=== PATIENT | female | born 1990 | race Caucasian/White ===

== ENCOUNTER 2023-04-21 09:52 | Outpatient (OUT) | payer OTHER, SELFPAY ==
--- NOTE | 2023-04-21 10:00 | XR_ITS ---
The [address] [address] Patient Name: PAIGE FUNG MRN: [id number] date: 1990 Sex: F Assigned Patient Location: [facility] Current Patient Location: [facility] Accession/Order Number: [id number] Exam Date: 04/21/2023 10:35 Report Date: 04/21/2023 11:15 At the request of: ZORAIDA LIPSCOMB Procedure: XR chest 2V EXAM: Chest x-ray HISTORY: . Preop exam . COMPARISON: None. TECHNIQUE: Frontal and lateral chest FINDINGS: Heart is upper limits of normal in size left ventricular contour. Vascularity is unremarkable. Lungs are free of focal infiltrates. No bony abnormality is appreciated. XR/XR chest 2V IMPRESSION: 1. Borderline cardiac enlargement. 2. No acute heart or lung disease identified. Electronically authenticated by: KIKO ERYNA Date: 04/21/2023 11:15
--- NOTE | 2023-04-21 10:37 | PM.PRESUREVA ---
History of Present Illness History of Present Illness Chief complaint: right shoulder adhesive capulitis Narrative: Patient presents for preadmission testing. The patient reports a right shoulder injury at work over one year ago. She states she's been through physical therapy and used anti-inflammatory medications as well as steroid injections with no improvement of her pain. She denies numbness, tingling, weakness, or any other complaints. She does occasionally take Tylenol or ibuprofen to help with her discomfort. Review of Systems ROS Narrative REVIEW OF SYSTEMS: Negative except as stated in HPI, ten or more systems reviewed. Constitutional: No fever , chills, weakness ENT: No sore throat or epistaxis Cardiovascular: No edema, chest pain, palpitations, or activity intolerance Respiratory: No shortness of breath, cough, or wheezing Gastrointestinal: No abdominal pain, constipation, diarrhea, or vomiting Genitourinary: No dysuria or hematuria Neurological: No numbness, tingling, weakness, or headache Psychiatric: No mood changes PFSH PFS Medical History (Updated 04/21/23 @ 10:17 by Itzel Alvarado NP) Depression ?F32.A - Depression, unspecified (ICD-10) Anxiety ?F41.9 - Anxiety disorder, unspecified (ICD-10) Sleep apnea ?G47.30 - Sleep apnea, unspecified (ICD-10) Migraine ?G43.909 - Migraine, unspecified, not intractable, without status migrainosus (ICD-10) GERD (gastroesophageal reflux disease) ?K21.9 - Gastro-esophageal reflux disease without esophagitis (ICD-10) IBS (irritable bowel syndrome) ?K58.9 - Irritable bowel syndrome without diarrhea (ICD-10) Postoperative nausea and vomiting ?R11.2 - Nausea with vomiting, unspecified (ICD-10) ?Z98.890 - Other specified postprocedural states (ICD-10) Adhesive capsulitis of right shoulder ?M75.01 - Adhesive capsulitis of right shoulder (ICD-10) Surgical History (Updated 04/21/23 @ 10:17 by Itzel Alvarado NP) H/O lumpectomy ?Z98.890 - Other specified postprocedural states (ICD-10) History of cholecystectomy ?Z90.49 - Acquired absence of other specified parts of digestive tract (ICD-10) Family History (Updated 04/21/23 @ 10:17 by Itzel Alvarado NP) Other Family history of diabetes mellitus Family history of hypertension Social History (Updated 04/21/23 @ 10:13 by Itzel Alvarado NP) Within the past year, how often did you have a drink containing alcohol: monthly or less Smoking status: Current every day smoker Do you use any of these nicotine containing products: e-cigarettes and vaping products Previous occupational history: [employer] Highest level of school completed/degree received: high school graduate Meds Home Medications and Allergies Home Medications Medication Instructions Recorded Confirmed Type levonorgestrel 21 mcg/24 hours (8 intrauterine 04/21/23 History yrs) 52 mg intrauterine device (Mirena) Allergies Allergy/AdvReac Type Severity Reaction Status Date / Time No Known Drug Allergies Allergy Verified 04/21/23 10:13 Exam Narrative Exam Narrative: Constitutional: Awake, alert, comfortable, well-appearing, nontoxic, interactive, vital signs as charted Head: Normocephalic, atraumatic Neck: Supple, normal appearance, normal range of motion, no meningeal signs, no lymphadenopathy Respiratory: No respiratory distress, breath sounds clear Cardiovascular: Regular rate and rhythm, strong and regular heart tones Skin: No rashes or induration, no lesions, only visible skin inspected Neuro: No neurological deficits, normal sensation Psychiatric: Oriented ?3, normal affect Assessment and Plan Assessment and Plan (1) Adhesive capsulitis of right shoulder: Plan Right shoulder manipulation under anesthesia scheduled with Dr. Callaway 05/04/2023.
== END 2023-04-21 09:53 | disposition home or self-care (01) ==
LOC: PST 09:55
PROVIDERS: Visit Provider Orthopaedic Surgery
DX: Z01.810 Encounter for preprocedural cardiovascular examination (principal); Z01.818 Encounter for other preprocedural examination; M75.01 Adhesive capsulitis of right shoulder
CPT/HCPCS: 71046; G0463

== ENCOUNTER 2023-05-04 11:56 | Day surgery (SDC) | payer OTHER, SELFPAY ==
[2023-04-21 10:31] VITALS: BP 125/81; PULSE 80; RESP 20; TEMP 36.2; O2SAT 99; BMI 56.2
[2023-05-04] VITALS (10 sets, daily range): BP systolic 112–130; BP diastolic 70–82; PULSE 72–78; RESP 13–28; TEMP 36.4; O2SAT 91–98; BMI 54.7
--- OUTSIDE RECORDS SUMMARY | 2023-05-04 11:59 | XMS_ITS | CCD ---
Author Name Unknown Address [address] [place] [address] Organization [facility] Care Team Providers Care Theatre Instructor Name Role Phone BRUNO VALDEZ Admitting Unavailable BRUNO VALDEZ Attending Unavailable BRUNO VALDEZ Consulting Unavailable House DO, Sr Jesus Butcher Primary Care Provider House Sr., DOJesus Primary Care Provider HOUSE SR, JESUS P Primary Care Unavailable LIPSCOMB, ADRIAN Hanson Referring Unavailable HOUSE SR, JESUS P Primary Care Unavailable LIPSCOMB, ADRIAN Hanson Referring Unavailable HOUSE SR, JESUS P Primary Care Unavailable HOUSE SR, JESUS P Primary Care Unavailable LIPSCOMB, ADRIAN aHnson Referring Unavailable HOUSE SR, JESUS P Primary Care Unavailable LIPSCOMB, ADRIAN Hanson Referring Unavailable HOUSE SR, JESUS P Primary Care Unavailable LIPSCOMB, ADRIAN Hanson Referring Unavailable HOUSE SR, JESUS P Primary Care Unavailable LIPSCOMB, ADRIAN Hanson Referring Unavailable KRISTOFER, YOBANI Y Referring Unavailable HOUSE SR, JESUS P Primary Care Unavailable HOUSE SR, JESUS P Primary Care Unavailable LIPSCOMB, ADRIAN Hanson Referring Unavailable HOUSE SR, JESUS P Primary Care Unavailable LIPSCOMB, ADRIAN Hanson Referring Unavailable HOUSE SR, JESUS P Primary Care Unavailable LIPSCOMB, ADRIAN Hanson Referring Unavailable HOUSE SR, JESUS P Primary Care Unavailable LIPSCOMB, ADRIAN Hanson Referring Unavailable HOUSE SR, JESUS P Primary Care Unavailable LIPSCOMB, ADRIAN Hanson Referring Unavailable LIPSCOMB, ADRIAN Hanson Referring Unavailable HOUSE SR, JESUS P Primary Care Unavailable LIPSCOMB, ADRIAN Hanson Referring Unavailable HOUSE SR, JESUS P Primary Care Unavailable HOUSE SR, JESUS P Primary Care Unavailable LIPSCOMB, ADRIAN Hanson Referring Unavailable HOUSE SR, JESUS P Primary Care Unavailable LIPSCOMB, ADRIAN Hanson Referring Unavailable HOUSE SR, JESUS P Primary Care Unavailable LIPSCOMB, ADRIAN Hanson Referring Unavailable HOUSE SR, JESUS P Primary Care Unavailable Medications Current Medications Medication Drug Class(es) Dates Sig (Normalized) Sig (Original) ondansetron 4 mg oral tablet (16 sources) Serotonin-3 Receptor Antagonist Start: 05-05-2017 take 1 tablet by mouth every four hours as needed for nausea ondansetron (ZOFRAN) 4 MG tablet Take 1 tablet by mouth every 4 hours as needed for Nausea or Vomiting 15 tablet 0 05/05/2017 Active Problems Active Problems Problem Classification Problem Date Documented Date Episodic/Chronic Immunizations and screening for infectious disease (1 source) Encounter for screening for human papillomavirus (HPV); Translations: [ENC SCREENING HUMAN PAPILLOMAVIRUS] Onset: 11-12-2018 Episodic Other female genital disorders (4 sources) Other specified noninflammatory disorders of vagina; Translations: [OTH SPEC NONINFLAMMATORY D/O VAGINA] Onset: 11-04-2018 Episodic Other non-traumatic joint disorders (1 source) Shoulder pain; Translations: [Pain in right shoulder] Episodic Other screening for suspected conditions (not mental disorders or infectious disease) (1 source) Encounter for screening for malignant neoplasm of cervix; Translations: [ENC SCREENING MALIG NEOPLASM CERV] Onset: 11-12-2018 Episodic Sprains and strains (1 source) Shoulder strain; Translations: [Strain of unspecified muscle, fascia and tendon at shoulder and upper arm level, right arm, initial encounter] Episodic Unclassified (2 sources) Right shoulder; Translations: [Right shoulder] Onset: 07-07-2022 Unclassified (2 sources) Shoulder Injury; Translations: [Shoulder Injury] Onset: 01-06-2022 Past or Other Problems Problem Classification Problem Date Documented Date Episodic/Chronic Noninfectious gastroenteritis (16 sources) Colitis; Translations: [Noninfective gastroenteritis and colitis, unspecified] Onset: 05-05-2017 05-05-2017 Episodic Other non-traumatic joint disorders (1 source) Pain in right shoulder; Translations: [Pain in right shoulder] Onset: 01-29-2022 Episodic Results Test Name Value Interpretation Reference Range Facility MRI SHOULDER RIGHT WO JIM Parris 01-30-2022 MRI SHOULDER RIGHT WO CONTRAST EXAMINATION: MRI OF THE RIGHT SHOULDER WITHOUT CONTRAST 01/29/2022 3:07 pm TECHNIQUE: Multiplanar multisequence MRI of the right shoulder was performed without the administration of intravenous contrast. COMPARISON: Right shoulder plain radiographs from 01/06/2022 HISTORY: ORDERING SYSTEM PROVIDED HISTORY: Right shoulder pain, unspecified chronicity TECHNOLOGIST PROVIDED HISTORY: What is the sedation requirement?->None 31-year-old female with right shoulder pain FINDINGS: ROTATOR CUFF: Trace fluid in the subacromial-subdeltoi d bursa. Mild supraspinatus and infraspinatus tendinosis. Subscapularis and teres minor muscle/tendon appear grossly intact without evidence of tearing. No significant atrophy or fatty degeneration of the visualized rotator cuff musculature. No partial or full thickness rotator cuff tear. BICEPS TENDON: Long head of biceps tendon properly located in the bicipital groove and seen extending to the biceps labral anchor. LABRUM: No discrete labral tear or paralabral cyst formation. GLENOHUMERAL JOINT: No sizable glenohumeral joint effusion. Glenohumeral articular cartilage is preserved. Inferior glenohumeral ligament appears intact. AC JOINT AND ACROMIOCLAVICULAR ARCH: Right AC joint grossly unremarkable. Type 2 acromion. BONE MARROW: Subcortical cystic changes at the posterolateral humeral head. Bone marrow signal intensity within the visualized osseous structures otherwise within normal limits. No acute fracture or dislocation involving the osseous components of the shoulder. OUTLET SPACES: Suprascapular notch and quadrilateral space grossly unremarkable in appearance. No right axillary lymphadenopathy. IMPRESSION: 1. Mild supraspinatus and infraspinatus tendinosis. No partial or full-thickness rotator cuff tear. 2. No discrete labral tear or paralabral cyst formation. RECOMMENDATIONS: Unavailable Interpreted by: Frank Brito MD Signed by: Frank Brito MD 01/30/22 Final result Normal [facility] 1. Mild supraspinatu s and infraspinatus tendinosis. No partial or full-thickness rotator cuff tear. 2. No discrete labral tear or paralabral cyst formation. RECOMMENDATIONS: Unavailable [facility] EXAMINATION: MRI OF THE RIGHT SHOULDER WITHOUT CONTRAST 01/29/2022 3:07 pm TECHNIQUE: Multiplanar multisequence MRI of the right shoulder was performed without the administration of intravenous contrast. COMPARISON: Right shoulder plain radiographs from 01/06/2022 HISTORY: ORDERING SYSTEM PROVIDED HISTORY: Right shoulder pain, unspecified chronicity TECHNOLOGIST PROVIDED HISTORY: What is the sedation requirement?->None 31-year-old female with right shoulder pain FINDINGS: ROTATOR CUFF: Trace fluid in the subacromial-subdeltoi d bursa. Mild supraspinatus and infraspinatus tendinosis. Subscapularis and teres minor muscle/tendon appear grossly intact without evidence of tearing. No significant atrophy or fatty degeneration of the visualized rotator cuff musculature. No partial or full thickness rotator cuff tear. BICEPS TENDON: Long head of biceps tendon properly located in the bicipital groove and seen extending to the biceps labral anchor. LABRUM: No discrete labral tear or paralabral cyst formation. GLENOHUMERAL JOINT: No sizable glenohumeral joint effusion. Glenohumeral articular cartilage is preserved. Inferior glenohumeral ligament appears intact. AC JOINT AND ACROMIOCLAVICULAR ARCH: Right AC joint grossly unremarkable. Type 2 acromion. BONE MARROW: Subcortical cystic changes at the posterolateral humeral head. Bone marrow signal intensity within the visualized osseous structures otherwise within normal limits. No acute fracture or dislocation involving the osseous components of the shoulder. OUTLET SPACES: Suprascapular notch and quadrilateral space grossly unremarkable in appearance. No right axillary lymphadenopathy. [facility] Frank Brito MD - 01/30/2022 EXAMINATION: MRI OF THE RIGHT SHOULDER WITHOUT CONTRAST 01/29/2022 3:07 pm TECHNIQUE: Multiplanar multisequence MRI of the right shoulder was performed without the administration of intravenous contrast. COMPARISON: Right shoulder plain radiographs from 01/06/2022 HISTORY: ORDERING SYSTEM PROVIDED HISTORY: Right shoulder pain, unspecified chronicity TECHNOLOGIST PROVIDED HISTORY: What is the sedation requirement?->None 31-year-old female with right shoulder pain FINDINGS: ROTATOR CUFF: Trace fluid in the subacromial-subdeltoi d bursa. Mild supraspinatus and infraspinatus tendinosis. Subscapularis and teres minor muscle/tendon appear grossly intact without evidence of tearing. No significant atrophy or fatty degeneration of the visualized rotator cuff musculature. No partial or full thickness rotator cuff tear. BICEPS TENDON: Long head of biceps tendon properly located in the bicipital groove and seen extending to the biceps labral anchor. LABRUM: No discrete labral tear or paralabral cyst formation. GLENOHUMERAL JOINT: No sizable glenohumeral joint effusion. Glenohumeral articular cartilage is preserved. Inferior glenohumeral ligament appears intact. AC JOINT AND ACROMIOCLAVICULAR ARCH: Right AC joint grossly unremarkable. Type 2 acromion. BONE MARROW: Subcortical cystic changes at the posterolateral humeral head. Bone marrow signal intensity within the visualized osseous structures otherwise within normal limits. No acute fracture or dislocation involving the osseous components of the shoulder. OUTLET SPACES: Suprascapular notch and quadrilateral space grossly unremarkable in appearance. No right axillary lymphadenopathy. IMPRESSION: 1. Mild supraspinatus and infraspinatus tendinosis. No partial or full-thickness rotator cuff tear. 2. No discrete labral tear or paralabral cyst formation. RECOMMENDATIONS: Unavailable [employer] Phone: MRI SHOULDER RIGHT WO CONTRA STOrdered By: Frank Brito on 01-30-2022 [employer] Phone: MRI SHOULDER RIGHT WO CONTRA STon 01-29-2022 Radiology Study observation (narrative) [employer] Phone: XR SHOULDER RIGHT (MIN 2 VIE WS)on 01-06-2022 XR SHOULDER RIGHT (MIN 2 VIEWS) EXAMINATION: THREE XRAY VIEWS OF THE RIGHT SHOULDER 01/06/2022 4:36 pm COMPARISON: None. HISTORY: ORDERING SYSTEM PROVIDED HISTORY: pain injury TECHNOLOGIST PROVIDED HISTORY: pain injury FINDINGS: No radiographic evidence of acute fracture or dislocation is seen. No periarticular calcification changes are seen. No radiopaque foreign body is seen. IMPRESSION: No radiographic evidence of acute osseous abnormality of the right shoulder seen. Interpreted by: Yobani Johnson MD Signed by: Yobani Johnson MD 01/06/22 Final result Normal [facility] No radiographic evidence of acute osseous abnormality of the right shoulder seen. [facility] EXAMINATION: THREE XRAY VIEWS OF THE RIGHT SHOULDER 01/06/2022 4:36 pm COMPARISON: None. HISTORY: ORDERING SYSTEM PROVIDED HISTORY: pain injury TECHNOLOGIST PROVIDED HISTORY: pain injury FINDINGS: No radiographic evidence of acute fracture or dislocation is seen. No periarticular calcification changes are seen. No radiopaque foreign body is seen. [facility] Yobani Johnson MD - 01/06/2022 EXAMINATION: THREE XRAY VIEWS OF THE RIGHT SHOULDER 01/06/2022 4:36 pm COMPARISON: None. HISTORY: ORDERING SYSTEM PROVIDED HISTORY: pain injury TECHNOLOGIST PROVIDED HISTORY: pain injury FINDINGS: No radiographic evidence of acute fracture or dislocation is seen. No periarticular calcification changes are seen. No radiopaque foreign body is seen. IMPRESSION: No radiographic evidence of acute osseous abnormality of the right shoulder seen. [employer] Phone: Radiology Study observation (narrative) [employer] Phone: XR SHOULDER RIGHT (MIN 2 VIE WS)Ordered By: oYbani Johnson on 01-06-2022 [employer] Phone: PAP ACOG PANEL 2: 21 to 29on 11-09-2018 Age Gdln ACOG Testing 21-29 Normal [facility] Comment on above: Performed By: #### [id number] #### [facility] [address] [place] [address] Jovanna Pelletier DIAGNOSIS: Comment Normal [facility] Comment on above: Result Comment: NEGA TIVE FOR INTRAEPITHELIAL LESION OR MALIGNANCY. THIS SPECIMEN WAS RESCREENED PART OF OUR WELT TRIMMING MACHINE OPERATOR PROGRAM. Performed By: #### [id number] #### [facility] [address] [place] [address] Jovanna Pelletier Methodology: Comment Normal [facility] Comment on above: Result Comment: This liquid based SurePath(R) pap test was screened with the assistance of an image guided system. Performed By: #### [id number] #### [facility] [address] [place] [address] Jovanna Pelletier Note: Comment Normal [facility] Comment on above: Result Comment: The Pap smear is a screening test designed to aid in the detection of premalignant and malignant conditions of the uterine cervix. It is not a diagnostic procedure and should not be used as the sole means of detecting cervical cancer. Both false-positive and false-negative reports do occur. . Performed By: #### [id number] #### [facility] [address] [address] Jovanna Liyah Performed by: Comment Normal [facility] Comment on above: Result Comment: Yanet Person, Pension Adviser (ASCP) Performed By: #### [id number] #### [facility] [address] [address] Jovanna Liyah QC reviewed by: Comment Normal [facility] Comment on above: Result Comment: Christy Palomino, Pension Adviser (ASCP) Performed By: #### [id number] #### [facility] [address] [address] Jovanna Liyah Reflex Criteria: Comment Normal [facility] Comment on above: Result Comment: The HPV DNA reflex criteria were not met with this specimen result therefore, no HPV testing was performed. . Performed By: #### [id number] #### [facility] [address] [place] [address] Jovanna Liyah Specimen adequacy: Comment Normal [facility] Comment on above: Result Comment: Sati sfactory for evaluation. Areas of partially obscuring inflammatory exudate are present. Partially obscuring thick areas are present. Performed By: #### [id number] #### [facility] [address] [place] [address] Jovanna Pelletier . . Normal [facility] Comment on above: Performed By: #### [id number] #### [facility] [address] [place] [address] Jovannabhumi Pelletier CHLAMYDIA/GONOCOCCUS KORTNEY (SW AB/URINE/PAPon 11-08-2018 Chlamydia trachomatis, KORTNEY Negative Normal Negative [facility] Comment on above: Performed By: #### C T/NGNA #### [facility] [address] [place] [address] Jovannabhumi Pelletier Neisseria gonorrhoeae, KORTNEY Negative Normal Negative [facility] Comment on above: Performed By: #### C T/NGNA #### [facility] [address] [place] [address] Jovannabhumi Pelletier VAGINITIS/VAGINOSIS DNA PROB Giancarlo 11-06-2018 Alma Rosa species Negative Normal Negative [facility] Comment on above: Performed By: #### V AGINT #### [facility] [address] [place], [place] [address] Jovanna Pelletier Gardnerella vaginalis Negative Normal Negative [facility] Comment on above: Performed By: #### V AGINT #### [facility] [address] [place], [place] [address] Jovanna Pelletier Trichomonas vaginalis Negative Normal Negative [facility] Comment on above: Performed By: #### V AGINT #### [facility] [address] [place], [place] [address] Jovanna Pelletier Vital Signs Date Time Vital Sign Value Performing Clinician Faci lity 01-06-2022 16:17-0400 Body temperature 99.19 [degF] Sr House DO Work Phone: [facility] 01-06-2022 16:17-0400 Diastolic blood pressure 83 mm[Hg] Sr House DO Work Phone: [facility] 01-06-2022 16:17-0400 Heart rate 90 /min Sr House DO Work Phone: [facility] 01-06-2022 16:17-0400 Respiratory rate 16 /min Sr House DO Work Phone: [facility] 01-06-2022 16:17-0400 SaO2% (BldA) [Mass fraction] 100 % Sr House DO Work Phone: [facility] 01-06-2022 16:17-0400 Systolic blood pressure 147 mm[Hg] Sr House DO Work Phone: [facility] Encounters Encounter Date Encounter Type Care Provider Facility Start: 08-08-2022 End: 08-09-2022 ambulatory JESUS P [facility] Start: 08-06-2022 End: 08-07-2022 ambulatory JESUS P [facility] Start: 07-30-2022 End: 07-31-2022 ambulatory JESUS P [facility] Start: 07-30-2022 End: 07-30-2022 Subsequent hospital visit by physician Jazmín Feldman PTA [facility] Comment on above: Arrived Start: 07-28-2022 End: 07-29-2022 ambulatory JESUS Butcher [facility] Start: 07-28-2022 End: 07-28-2022 Subsequent hospital visit by physician [facility]io C Adams [facility] Comment on above: Arrived Start: 07-25-2022 End: 07-26-2022 ambulatory JESUS Butcher [facility] Start: 07-25-2022 End: 07-25-2022 Subsequent hospital visit by physician Julio C Adams PTA [facility] Physical Therapy Comment on above: Arrived Start: 07-23-2022 End: 07-24-2022 ambulatory JESUS Butcher [facility] Start: 07-23-2022 End: 07-23-2022 Subsequent hospital visit by physician Julio C Adams PTA [facility] Physical Therapy Comment on above: Arrived Start: 07-21-2022 End: 07-22-2022 [facility] JESUS Butcher [facility] Start: 07-21-2022 End: 07-21-2022 Subsequent hospital visit by physician Julio C Adams PTA [facility] Physical Therapy Comment on above: Arrived Start: 07-18-2022 End: 07-19-2022 [facility] JESUS Butcher [facility] Start: 07-16-2022 End: 07-17-2022 [facility] JESUS Butcher [facility] Start: 07-16-2022 End: 07-16-2022 Subsequent hospital visit by physician Julio C Adams PTA [facility] Physical Therapy Comment on above: Arrived Start: 07-14-2022 End: 07-15-2022 [facility] JESUS Butcher [facility] Start: 07-14-2022 End: 07-14-2022 Subsequent hospital visit by physician Julio C Adams PTA [facility] Physical Therapy Comment on above: Arrived Start: 07-11-2022 End: 07-12-2022 [facility] Start: 07-09-2022 End: 07-10-2022 [facility] Start: 07-09-2022 End: 07-09-2022 Subsequent hospital visit by physician Julio C Adams PTA [facility] Physical Therapy Comment on above: Arrived Start: 07-07-2022 End: 07-08-2022 ambulatory JESUS Butcher [facility] Start: 07-07-2022 End: 07-07-2022 Subsequent hospital visit by physician Julio C Adams PTA [facility] Physical Therapy Comment on above: Arrived Start: 07-04-2022 End: 07-05-2022 ambulatory JESUS Butcher [facility] Start: 07-04-2022 End: 07-04-2022 Subsequent hospital visit by physician Amaury Quiñonez PT [facility] Physical Therapy Comment on above: Arrived Start: 07-02-2022 End: 07-03-2022 ambulatory JESUS Butcher [facility] Start: 07-02-2022 End: 07-02-2022 Subsequent hospital visit by physician Julio C Adams PTA [facility] Physical Therapy Comment on above: Arrived Start: 06-30-2022 End: 06-30-2022 Subsequent hospital visit by physician Julio C Adams PTA [facility] Start: 06-24-2022 End: 06-25-2022 ambulatory JESUS Butcher [facility] Start: 06-24-2022 End: 06-24-2022 Subsequent hospital visit by physician Amaury Quiñonez PT [facility] Physical Therapy Comment on above: Arrived Start: 06-20-2022 End: 06-21-2022 [facility] JESUS Butcher [facility] Start: 06-20-2022 End: 06-20-2022 Subsequent hospital visit by physician Gianna Thompson PT [facility] Physical Therapy Comment on above: Arrived Start: 01-29-2022 End: 02-01-2022 ambulatory YOBANI DUENAS [facility] Start: 01-29-2022 End: 01-31-2022 Subsequent hospital visit by physician [facility] Comment on above: Right shoulder pain, unspecified chronicity Start: 01-06-2022 Emergency department patient visit JESUS Butcher [facility] Start: 01-06-2022 End: 01-06-2022 Emergency department patient visit [facility] DO Work Phone: [facility] ED Comment on above: Strain of right shou lder, initial encounter (Primary Dx) Start: 11-04-2018 End: 11-04-2018 Patient encounter procedure [facility] Facility:H1 Procedures Date Procedure Procedure Detail Performing Clinician Start: 01-29-2022 Mri any jt upper extremity w/o contrast matrl Yobani Duenas Work Phone: Start: 01-06-2022 Radex shoulder compl ete minimum 2 views Rainsera Marie DO Work Phone: Plan of Treatment Date Care Activity Detail Author Start: 10-21-2022 Influenza vaccination Flu vacc ine (Season Ended) [facility] Start: 08-08-2022 End: 08-08-2022 Patient encounter procedure 08/08/2022 Appointment Physical Therapy Amaury Quiñonez, MARIA ESTHER [facility] Start: 08-06-2022 End: 08-06-2022 Patient encounter procedure 08/06/2022 Appointment Physical Therapy Julio C Adams PTA [facility] Start: 08-04-2022 End: 08-04-2022 Patient encounter procedure 08/04/2022 Appointment Physical Therapy Julio C Adams PTA [facility] Start: 08-01-2022 End: 08-01-2022 Patient encounter procedure 08/01/2022 Appointment Physical Therapy Nova Meyer PT [facility] Start: 07-30-2022 End: 07-30-2022 Patient encounter procedure [facility] Start: 07-28-2022 End: 07-28-2022 Patient encounter procedure 07/28/2022 Appointment Physical Therapy [facility]io C Adams [facility] Start: 07-25-2022 End: 07-25-2022 Patient encounter procedure 07/25/2022 Appointment Physical Therapy Julio C Adams PTA [facility] Start: 07-23-2022 End: 07-23-2022 Patient encounter procedure 07/23/2022 Appointment Physical Therapy Julio C Adams [facility] Start: 07-21-2022 End: 07-21-2022 Patient encounter procedure 07/21/2022 Appointment Physical Therapy Julio C Adams PTA [facility] Start: 07-18-2022 End: 07-18-2022 Patient encounter procedure 07/18/2022 Appointment Physical Therapy Julio C Adams PTA [facility] Start: 07-16-2022 End: 07-16-2022 Patient encounter procedure 07/16/2022 Appointment Physical Therapy Julio C Adams [facility] Start: 07-16-2022 Subsequent hospital visit by physician 07/16/2022 Hospital Encounter Physical Therapy Julio C Adams TOOL CLERK [facility] Start: 07-14-2022 End: 07-14-2022 Patient encounter procedure 07/14/2022 Appointment Physical Therapy Julio C Adams TOOL CLERK [facility] Start: 07-11-2022 End: 07-11-2022 Patient encounter procedure 07/11/2022 Appointment Physical Therapy Julio C Adams [facility] Start: 07-09-2022 End: 07-09-2022 Patient encounter procedure 07/09/2022 Appointment Physical Therapy Julio C Adams PTA [facility] Start: 07-07-2022 End: 07-07-2022 Patient encounter procedure 07/07/2022 Appointment Physical Therapy Julio C Adams TOOL CLERK [facility] Start: 07-04-2022 End: 07-04-2022 Patient encounter procedure 07/04/2022 Appointment Physical Therapy Amaury Quiñonez, PT [facility] Start: 07-02-2022 End: 07-02-2022 Patient encounter procedure 07/02/2022 Appointment Physical Therapy Julio C Adams PTA [facility] Start: 06-30-2022 End: 06-30-2022 Patient encounter procedure 06/30/2022 Appointment Physical Therapy Julio C Adams PTA [facility] Start: 06-30-2022 Subsequent hospital visit by physician 06/30/2022 Hospital Encounter Physical Therapy Julio C Adams TOOL CLERK [facility] Start: 06-27-2022 End: 06-27-2022 Patient encounter procedure 06/27/2022 Appointment Physical Therapy Amaury Quiñonez, PT [facility] Start: 06-24-2022 End: 06-24-2022 Patient encounter procedure 06/24/2022 Appointment Physical Therapy Amaury Quiñonez, PT [facility] Start: 11-23-2021 Screening for malign ant neoplasm of cervix [facility] Start: 10-21-2021 Influenza vaccination Flu vaccine (# 1) [facility] Start: 11-23-2012 Screening for malign ant neoplasm of cervix Pap smear [facility] Start: 11-23-2010 DTaP/Tdap/Td vaccine (1 - Tdap) DTaP/Tdap/Td vaccine (1 - Tdap) [facility] Start: 11-23-2009 Hepatitis C screening Hepatitis C sc reen [facility] Start: 11-23-2006 HIV screening HIV screen [facility] Start: 2003 Depression Screen Depression Screen [facility] Start: 11-23-1997 Pneumococcal 0-64 ye ars Vaccine (1 - PCV) Pneumococcal 0-64 years Vaccine (1 - PCV) [facility] Start: 11-23-1992 Varicella vaccine (1 of 2 - 2-dose childhood series) Varicella vaccine (1 of 2 - 2-dose childhood series) [facility] Start: 05-23-1992 COVID-19 Vaccine (#1) COVID-19 Vacci ne (#1) [facility] Payers Date Payer Category Payer Unknown [id number] 1.2.84 [id number] 2021 Unknown [id number] 1.2.8 [id number] 2021 Unknown 2021 1.2.840.11 [id number] 1990 Unknown [id number] 2.16.84 0.1.205706.3.579.2.593 1990 Unknown [id number] 2.16.8 40.1.312116.3.579.2.173 1991 Unknown [id number] 2.16.8 40.1.363041.3.579.2.173 1991 Unknown [id number] 2.16.8 40.1.467249.3.579.2.173 1991 Unknown [id number] 2.16.8 40.1.492297.3.579.2.173 1991 Unknown [id number] 2.16.8 40.1.590194.3.579.2.173 1991 Unknown [id number] 2.16.8 40.1.752780.3.579.2.173 1991 Unknown [id number] 2.16.8 40.1.901062.3.579.2.173 1991 Unknown [id number] 2.16.8 40.1.029934.3.579.2.173 1991 Unknown [id number] 2.16.8 40.1.744727.3.579.2.173 1991 Unknown [id number] 2.16.8 40.1.944574.3.579.2.173 1991 Unknown [id number] 2.16.8 40.1.029571.3.579.2.173 1991 Unknown [id number] 2.16.8 40.1.868987.3.579.2.173 1991 Unknown [id number] 2.16.8 40.1.496393.3.579.2.173 1991 Unknown [id number] 2.16.8 40.1.062549.3.579.2.173 1991 Unknown [id number] 2.16.8 40.1.352419.3.579.2.173 1991 Unknown [id number] 2.16.8 40.1.841456.3.579.2.173 1991 Unknown [id number] 2.16.8 40.1.996642.3.579.2.173 1990 Unknown [id number] 2.16.8 40.1.463006.3.579.2.173 1959 Unknown [id number] Social History Date Type Detail Facility Start: 05-05-2017 [facility] [employer] Phone: History of tobacco use Cigarette Smoker [facility] [employer] Phone: Start: 05-05-2017 Cigarettes smoked current (pack per day) - Reported 0.5 [facility] [employer] Phone: Start: 05-05-2017 Tobacco use and exposure Smoke less tobacco non-user [facility] [employer] Phone: Start: 1990 Sex Assigned At Not on file [facility] [employer] Phone: Start: 12-27-2021 End: 01-06-2022 Exposure to SARS-CoV-2 (event) Not sure [facility] [employer] Phone: History of Present illness Narrative 07-30-2022 Jazmín Feldman, [facility] - 07/30/2022 2:45 PM EDT Note Date & Type Note Facility 07-30-2022 History of Present illness Narrative [facility] Outpatient Physical Therapy Daily Note Patient: Paige Panchal : 1990 CSN #: [id number] Referring Physician: Adrian Lipscomb MD Date: 07/30/2022 Treatment Diagnosis: R SHLD pain Onset Date: 01/05/22 PT Insurance Information: Yassine Watts [facility] approval from 05/13/22-07/04/22 Total # of Visits Approved: 18 Per Physician Order Total # of Visits to Date: 16 No Show: 0 Canceled Appointment: 1 08/01/22 Plan of Care/Recert Due Pre-Treatment Pain: 5/10 Subjective: Pt states that shoulder is slowly feeling better. Pain 5/10. Pt reports DOMS throughout the day after therapy. Exercises: Exercise 1: HEP pendulums, supine wand Flex/ER Exercise 3: BOW with stretch Exercise 5: supine osborne fly 2# 2x10 Exercise 6: SM push up 2x10 Exercise 8: Rows/extension/IR/ER GreyTB 2x15 Exercise 12: UBE 5' forward/ 5' retro Exercise 13: Supine 5# bench, 2# flex 15x ea Exercise 14: seated cybex 4 pl 15x Exercise 15: Kieser Diags 11.2 2x10 Exercise 17: TRX walkouts for pec stretch Modalities: Ultrasound to R shoulder 9 min 3MHz, 1W/cm2, pulsed 50% to increase tissue healing and extensibility IFC applied to R shoulder with CP in supine 15min to reduce pain and discomfort. Assessment Assessment: Pt progressing with charted ex with no increase in pain. US provided to increase healing and circulation. Continue to progress per tolerance. Activity Tolerance Activity Tolerance: Patient tolerated treatment well Patient Education Patient Education: HEP Pt verbalized/demonstrated good understanding: [x] Yes [] No, pt required further clarification. Post Treatment Pain: 06/30 Plan Plan Frequency: 3x/wk Plan weeks: 6 weeks Goals (Total # of Visits to Date: 16) Short Term Goals Time Frame for Short Term Goals: 3 weeks Short Term Goal 1: Pt will be educated on her POC And HEP-met Short Term Goal 2: Pt will increase R SHLD flex/abd to >/=130 in order to perform overhead ADLS - progressing Custodial Goals Time Frame for Custodial Goals : 6 weeks Shopper Goal 1: Pt will be safe and independent with her HEP Custodial Goal 2: Pt will increase R SHLD IR to >/=L2 and ER to >/=65 in order to reduce painful movement - progressing Custodial Goal 3: Pt will increase R SHLD strength to >/=4+/5 in order to return to lifting at work - progressing Custodial Goal 4: Pt will report 70% improvement in symptoms - progressing Minutes Tracking: Time In: 1445 Time Out: 1545 Minutes: 60 Timed Code Treatment Minutes: 57 Minutes Treatment Charges: Code Total Mins Units Time In/Out [] Evaluation [] Low [] Moderate [] High [] Re-Evaluation 86480 18423 17771 19408 [x] Ther Exercise 28843 33 2 14:45-15:18 [] Manual Therapy 03921 [x] Unattend Estim 49805 15 1 15:30-15:45 [x] Ultrasound 08385 9 1 15:20-15:29 [] Iontophoresis 93811 [] Neuro Fanny 63913 [] Aquatics 12066 [] Traction 59794 [] Work Hardening 53952 [] FCE 93968 Total Treatment time 60 mins Total Time of Time Codes 57 mins Jazmín Feldman, TOOL CLERK Date: 07/30/2022 documented in this encounter [facility] [employer] Phone: History of Present illness Narrative 07-28-2022 Asia Swift - 07/28/2022 3:30 PM EDT Note Date & Type Note Facility 07-28-2022 History of Presen t illness Narrative SPOKE WITH [employer] DESIGNER MELISSA WINKLER FOR DATE EXTENTION THROUGH 08-08-22 SHE WILL FAX US WITH NEW DATE. [facility] Phone: History of Present illness Narrative 07-09-2022 Jazmín Feldman PTA - 07/09/2022 3:15 PM EDT Note Date & Type Note Facility 07-09-2022 History of Present illness Narrative [facility] Outpatient Physical Therapy Daily Note Patient: Paige Panchal : 1990 CSN #: [id number] Referring Physician: Date: 07/09/2022 Treatment Diagnosis: R SHLD pain Onset Date: 01/05/22 PT Insurance Information: Yassine Watts [facility] approval from 05/13/22-07/04/22 Total # of Visits Approved: 18 Per Physician Order Total # of Visits to Date: 7 No Show: 0 Canceled Appointment: 1 Pre-Treatment Pain: 6/10 Subjective: Pt states not getting any better, nor getting any worse. pain 6/10. Exercises: Exercise 1: HEP pendulums, supine wand Flex/ER Exercise 4: lateral wall walks YTB 4 laps Exercise 5: IR/ER YTB 2x10 Exercise 6: Cane Therex Abd/Flex x10 each Exercise 7: Finger Ladder x3 Flex x3 Abd Exercise 8: Rows/extension YTB 2x15 Exercise 10: shrugs/ rolls/ retracs/ curls. 3# 15x Exercise 11: Rhomboid Stretch 3x15 Exercise 12: UBE 4' Manual: Joint Mobilization: GHJ mobilizations Grade 1-2 A-P, Inf, Distraction Soft Tissue Mobilizaton: PROM flex/ ER Modalities: IFC to R shoulder in supine with CP to reduce pain and discomfort. Assessment Assessment: Initiated tx session with UBE with no c/o of increased pain. Pt demos impulsiveness throughout ex even when c/o pain and guarding. Continue to monitor and progress per tolerance to maintain ROM and strength. Pt compliant with HEP to reduce pain and discomfort. Activity Tolerance Activity Tolerance: Patient limited by pain Patient Education Pt verbalized/demonstrated good understanding: [x] Yes [] No, pt required further clarification. Post Treatment Pain: 08/30 Plan Plan Frequency: 3x/wk Plan weeks: 6 weeks Goals (Total # of Visits to Date: 7) Short Term Goals Time Frame for Short Term Goals: 3 weeks Short Term Goal 1: Pt will be educated on her POC And HEP-met Short Term Goal 2: Pt will increase R SHLD flex/abd to >/=130 in order to perform overhead ADLS - progressing Custodial Goals Time Frame for Shopper Goals : 6 weeks Custodial Goal 1: Pt will be safe and independent with her HEP Shopper Goal 2: Pt will increase R SHLD IR to >/=L2 and ER to >/=65 in order to reduce painful movement - progressing Shopper Goal 3: Pt will increase R SHLD strength to >/=4+/5 in order to return to lifting at work - progressing Custodial Goal 4: Pt will report 70% improvement in symptoms - progressing Minutes Tracking: Time In: 1515 Time Out: 1600 Minutes: 45 Timed Code Treatment Minutes: 43 Minutes Treatment Charges: Code Total Mins Units Time In/Out [] Evaluation [] Low [] Moderate [] High [] Re-Evaluation 76607 36284 89927 95718 [x] Ther Exercise 78974 15 1515/1528 [x] Manual Therapy 74499 1531/1544 [x] Unattend Estim 92066 1545/1600 [] Ultrasound 98095 [] Iontophoresis 39823 [] Neuro Fanny 59985 [] Aquatics 21099 [] Traction 29638 [] Work Hardening 15267 [] E 45403 Total Treatment time 45 mins Total Time of Time Codes 43 mins Jazmín Feldman, TOOL CLERK Date: 07/09/2022 documented in this encounter [facility] [employer] Work Phone: History of Present illness Narrative 07-04-2022 Amaury Quiñonez, PT - 07/04/2022 2:45 PM EDT Note Date & Type Note Facility 07-04-2022 History of Present illness Narrative [facility] Outpatient Physical Therapy Daily Note Patient: Paige Panchal : 1990 CSN #: [id number] Referring Physician: Adrian Lipscomb MD Date: 07/04/2022 Diagnosis: R SHLD Treatment Diagnosis: R SHLD pain Onset Date: 01/05/22 PT Insurance Information: Yassine Watts [facility] approval from 05/13/22-07/04/22 Total # of Visits Approved: 18 Per Physician Order Total # of Visits to Date: 5 No Show: 0 Canceled Appointment: 1 Pre-Treatment Pain: 7.5/10 Subjective: Pt states pain is higher today than usual, notes increased discomfort anteriorly this date. Notes 7.5/10 pain currently. Exercises: Exercise 1: HEP pendulums, supine wand Flex/ER Exercise 4: Thoracic Extension x10 Exercise 5: IR/ER Walkouts x10 each Exercise 6: Cane Therex Abd/Flex x10 each Exercise 7: Finger Ladder x3 Flex x3 Abd Exercise 8: Rows x10 Exercise 10: shrugs/ rolls/ retracs/ curls. 15x Exercise 11: Rhomboid Stretch 3x15 Modalities: 8' US to R Biceps to decrease inflammation and tone 15' IFC + CP to R shoulder to decrease inflammation and pain Assessment Assessment: Pt continues to present with increased shoulder pain both at rest and with functional activity. Pt does well with all functional exercises and stretches in the clinic, but remains limited in terms of end range mobility and max strength d/t pain. Pt presents with appx 125 degrees aarom R shoulder flexion and appx 100 degrees aarom R shoulder abd. Pt continues to demonstrate limitations in functional strength, espeically once above shoulder height. Pt will continue to benefit from skilled therapy to improve functional shoulder mobility and strength while reducing pain with ADLs. Activity Tolerance Activity Tolerance: Patient tolerated treatment well, Patient limited by pain Patient Education Patient Education: HEP Pt verbalized/demonstrated good understanding: [x] Yes [] No, pt required further clarification. Post Treatment Pain: 08/30 Plan Plan Frequency: 3x/wk Plan weeks: 6 weeks Goals (Total # of Visits to Date: 5) Short Term Goals Time Frame for Short Term Goals: 3 weeks Short Term Goal 1: Pt will be educated on her POC And HEP-met Short Term Goal 2: Pt will increase R SHLD flex/abd to >/=130 in order to perform overhead ADLS - progressing Custodial Goals Time Frame for Shopper Goals : 6 weeks Custodial Goal 1: Pt will be safe and independent with her HEP Custodial Goal 2: Pt will increase R SHLD IR to >/=L2 and ER to >/=65 in order to reduce painful movement - progressing Custodial Goal 3: Pt will increase R SHLD strength to >/=4+/5 in order to return to lifting at work - progressing Custodial Goal 4: Pt will report 70% improvement in symptoms - progressing Minutes Tracking: Time In: 1443 Time Out: 1541 Minutes: 58 Timed Code Treatment Minutes: 56 Minutes Treatment Charges: Code Total Mins Units Time In/Out [] Evaluation [] Low [] Moderate [] High [] Re-Evaluation 64025 78668 87057 87576 [x] Ther Exercise 01855 1444 1510 [] Manual Therapy 50242 [x] Unattend Estim 43138 1522 1540 [x] Ultrasound 36654 1511 1521 [] Iontophoresis 81335 [] Neuro Fanny 74850 [] Aquatics 77218 [] Traction 26001 [] Work Hardening 75302 [] FCE 54129 Total Treatment time 58 mins Total Time of Time Codes 56 mins Amaury Quiñonez PT Date: 07/04/2022 documented in this encounter [facility] [employer] Work Phone: History of Present illness Narrative 04-10-2023 Asia Swift - 06/30/2022 3:30 PM EDT Note Date & Type Note Facility 06-30-2022 History of Present illness Narrative [facility] Inpatient/Observation/Outpatient Rehabilitation Date: 06/30/2022 Patient Name: Paige Panchal [] Inpatient Acute/Observation [] Outpatient : 1990 [] Pt no showed for scheduled appointment [] Pt refused/declined therapy at this time due to: [x] Pt cancelled due to: [] No Reason Given [x] Sick/ill [] Other: Therapist/Product Support Representative will attempt to see this patient, at our earliest opportunity. Asia Swift Date: 06/30/2022 documented in this encounter [facility] [employer] Phone: History of Present illness Narrative 06-24-2022 Amaury Quiñonez, PT - 06/24/2022 2:45 PM EDT Note Date & Type Note Facility 06-24-2022 History of Present illness Narrative [facility] Outpatient Physical Therapy Daily Note Patient: Paige Panchal : 1990 CSN #: [id number] Referring Physician: Adrian Lipscomb MD Date: 06/24/2022 Treatment Diagnosis: R SHLD pain Onset Date: 01/05/22 PT Insurance Information: Metzgerlilly Watts [facility] approval from 05/13/22-07/04/22 Total # of Visits Approved: 18 Per Physician Order Total # of Visits to Date: 2 Pre-Treatment Pain: 6/10 Subjective: Pt states she is still feeling sore through her shoulder, notes small movements are ok and bigger ones cause discomfort. Pt is able to complete modified work tasks at this time, but feels normal work activity would be impossible. Pt notes 6/10 pain at this time. Exercises: Exercise 1: HEP pendulums, supine wand Flex/ER Exercise 4: Thoracic Extension x10 Exercise 5: IR/ER Walkouts x10 each Exercise 6: Cane Therex Abd/Flex x10 each Exercise 7: Finger Ladder x3 Flex x3 Abd Exercise 8: Rows x10 Exercise 9: Belt IR behind the back stretch 3x15 Manual: Joint Mobilization: GHJ mobilizations Grade 1-2 A-P, Inf, Distraction Modalities: 15' IFC to R shoulder to decrease tone and improve circulation Assessment Assessment: Pt responded to shoulder stretching and exercises well this date. pt demonstrated good motor control with rows and resisted walkouts as well as good RoM with cane and finger ladder exercises. Plan to progress pt as toelrated. Activity Tolerance Activity Tolerance: Patient tolerated treatment well, Patient limited by pain Patient Education Patient Education: HEP Pt verbalized/demonstrated good understanding: [x] Yes [] No, pt required further clarification. Post Treatment Pain: 5-08/30 Plan Plan Frequency: 3x/wk Plan weeks: 6 weeks Goals (Total # of Visits to Date: 2) Short Term Goals Time Frame for Short Term Goals: 3 weeks Short Term Goal 1: Pt will be educated on her POC And HEP-met Short Term Goal 2: Pt will increase R SHLD flex/abd to >/=130 in order to perform overhead ADLS Shopper Goals Time Frame for Custodial Goals : 6 weeks Shopper Goal 1: Pt will be safe and independent with her HEP Custodial Goal 2: Pt will increase R SHLD I to >/=L2 and ER to >/=65 in order to reduce painful movement Shopper Goal 3: Pt will increase R SHLD strength to >/=4+/5 in order to return to lifting at work Shopper Goal 4: Pt will report 70% improvement in symptoms Minutes Tracking: Time In: 1445 Time Out: 1541 Minutes: 56 Timed Code Treatment Minutes: 53 Minutes Amaury Quiñonez, PT Date: 06/24/2022 documented in this encounter [employer] Work Phone: History of Present illness Narrative 06-20-2022 Gianna Thompson, PT - 06/20/2022 2:00 PM EDTSanahi Thompson, PT - 06/20/2022 2:00 PM EDT Note Date & Type Note Facility 06-20-2022 History of Present illness Narrative [facility] Outpatient Physical Therapy Date: 06/20/2022 Patient: Paige Panchal : 1990 CSN #: [id number] Referring Physician: Adrian Lipscomb MD [x] Plan of Care [] Updated Plan of Care Dates of Service to Include: 06/20/2022 to 07/04/22 Diagnosis: R SHLD Rehab (Treatment) Diagnosis: R SHLD pain Onset Date: 01/05/22 Attendance Total # of Visits to Date: 1 Assessment Assessment: Pt is a 31 year old female that presents with R SHLD pain with limited AROM and strength from a work related injury. Pt had an MRI that was negative. Pt will benefit from skilled PT in order to address these deficits. Goals Short Term Goals Time Frame for Short Term Goals: 3 weeks Short Term Goal 1: Pt will be educated on her POC And HEP-met Short Term Goal 2: Pt will increase R SHLD flex/abd to >/=130 in order to perform overhead ADLS Custodial Goals Time Frame for Shopper Goals : 6 weeks Custodial Goal 1: Pt will be safe and independent with her HEP Shopper Goal 2: Pt will increase R SHLD I to >/=L2 and ER to >/=65 in order to reduce painful movement Custodial Goal 3: Pt will increase R SHLD strength to >/=4+/5 in order to return to lifting at work Custodial Goal 4: Pt will report 70% improvement in symptoms Prognosis Therapy Prognosis: Good Treatment Plan Plan Frequency: 3x/wk Plan weeks: 6 weeks [x] HP/CP [x] Electrical Stim [x] Therapeutic Exercise [] Gait Training [] Aquatics [x] Ultrasound [] Patient Education/HEP [x] Manual Therapy [] Traction [] Neuro-fanny [x] Soft Tissue Mobs [] Home TENS [] Iontophoresis [] Orthotic casting/fitting [] Dry Needling [] Blood Flow Restriction Electronically signed by: Gianna Thompson PT, DPT Date: 06/20/2022 Date: 06/20/2022 Physician Signature [facility] Outpatient Physical Therapy Evaluation Date: 06/20/2022 Patient: Paige Panchal : 1990 CSN #: [id number] Referring Physician: Adrian Lipscomb MD Medical Diagnosis: R SHLD Treatment Diagnosis: R SHLD pain Onset Date: 01/05/22 PT Insurance Information: Yassine Watts [facility] approval from 05/13/22-07/04/22 Total # of Visits Approved: 18 Total # of Visits to Date: 1 Subjective Subjective: 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 Pt is still currently working but on restrictions including no lifting over 2# and no overhead work. Pt has had an x-ray and MRI to R SHLD which were both negative. Additional Pertinent Hx: n/a Objective AROM General AROM UE: AROM Assessed AROM LUE (degrees) L Shoulder Flexion (0-180): 167 L Shoulder ABduction (0-180): 155 L Shoulder Int Rotation (0-70): T7 L Shoulder Ext Rotation (0-90): 65 R SHLD flex 125 R SHLD adb 111 R SHLD IR PSIS R SHLD ER 60 Special Tests: Strength RUE R Shoulder Flexion: 3/5 R Shoulder ABduction: 3-/5 R Shoulder Internal Rotation: 4-/5 R Shoulder External Rotation: 3+/5 Strength LUE L Shoulder Flexion: 4+/5 L Shoulder ABduction: 4/5 L Shoulder Internal Rotation: 4+/5 L Shoulder External Rotation: 4/5 Exercises: Exercise 1: HEP pendulums, supine wand Flex/ER Exercise 2: supine wand x10 Exercise 3: pendulums x20 Modalities: US x8 to R HLD to reduce pain IFC x15 min to R SHLD with HP to reduce pain Functional Outcome Measures Open a tight or new jar: Moderate Difficulty Do heavy scale tank operator (e.g., wash metcalf, floors): Moderate Difficulty Cece a shopping bag or briefcase: Unable Wash your back: Unable Use a knife to cut food: No Difficulty Recreational activities in which you take some force or impact through your arm, shoulder, or hand (e.g., golf, hammering, tennis, etc.): Severe Difficulty During the past week, to what extent has your arm, shoulder or hand problem interfered with your normal social activities with family, friends, neighbors or groups?: Slightly During the past week, were you limited in your work or other regular daily activities as a result of your arm, shoulder or hand problem?: Very Limited Arm, shoulder or hand pain: Moderate Tingling (pins and needles) in your arm, shoulder or hand: None During the past week, how much difficulty have you had sleeping because of the pain in your arm, shoulder or hand?: Moderate Difficulty QuickDASH Total Score: 34 QuickDASH Disability/Symptom Score : 52.27 % Assessment Assessment: Pt is a 31 year old female that presents with R SHLD pain with limited AROM and strength from a work related injury. Pt had an MRI that was negative. Pt will benefit from skilled PT in order to address these deficits. Therapy Prognosis: Good Decision Making: Low Complexity Patient Education Patient Education: pt educated on her POC and HEP Pt verbalized/demonstrated good understanding: [X] Yes [] No, pt required further clarification. Goals Short Term Goals Time Frame for Short Term Goals: 3 weeks Short Term Goal 1: Pt will be educated on her POC And HEP-met Short Term Goal 2: Pt will increase R SHLD flex/abd to >/=130 in order to perform overhead ADLS Shopper Goals Time Frame for Custodial Goals : 6 weeks Shopper Goal 1: Pt will be safe and independent with her HEP Shopper Goal 2: Pt will increase R SHLD I to >/=L2 and ER to >/=65 in order to reduce painful movement Shopper Goal 3: Pt will increase R SHLD strength to >/=4+/5 in order to return to lifting at work Shopper Goal 4: Pt will report 70% improvement in symptoms Patient Goals : to use her SHLD without pain Minutes Tracking: Time In: 1403 Time Out: 1500 Minutes: 57 Timed Code Treatment Minutes: 55 Minutes Treatment Charges: Code Total Mins Units Time In/Out [x] Evaluation [] Low [x] Moderate [] High [] Re-Evaluation 94674 37454 61752 58046 17 1 14:03-14:20 [x] Ther Exercise 96722 15 1 14:21-1436 [] Manual Therapy 74738 [x] Unattend Estim 64798 15 1 6395-9342 [] Ultrasound 15788 8 1 3543-5527 [] Iontophoresis 02859 [] Neuro Fanny 42023 [] Aquatics 62060 [] Traction 25645 [] Work Hardening 12647 [] FCE 32916 Total Treatment time 57 mins Total Time of Time Codes 55 mins Gianna Thompson PT, DPT 06/20/2022 documented in this encounter [employer] Phone: Hospital Discharge instructions 01-06-2022 Discharge InstructionsAttachments Note Date & Type Note Facility 01-06-2022 Hospital Discharg e instructions Poncho Benson PA-C - 01/06/2022 7:22 PM EDT Follow-up with orthopedic doctor 5 to 7 days for reevaluation. Wear sling for comfort. Do not lift with that right arm. Take Tylenol or Motrin as directed for discomfort. Follow RICE instructions. Promptly return to emergency department for new, changing, worsening of symptoms or other concerns. The following attachments cannot be sent through Care Everywhere.Shoulder Sprain ([place] Islander)RICE: General Info ([place] Islander)documented in this encounter [facility] Phone: Evaluation note Note Date & Type Note Facility Evaluation note Diagnosis Strain of right shoulder, initial encounter- Primary documented in this encounter [facility] Phone: Evaluation note Note Date & Type Note Facility Evaluation note Diagnosis Right shoulder pain, unspecified chronicity documented in this encounter [facility] Phone: Summary Purpose Family History No Family History Records FoundNo Family History Records Found Advance Directives No Advanced Directives Records FoundNo Advanced Directives Records Found Reason for Referral Specialty Diagnoses / Procedures Referred By Contac t Referred To Contact Radiology Diagnoses Right shoulder pain, unspecified chronicity Procedures MRI SHOULDER RIGHT WO CONTRAST Yobani Duenas [address] [place] [address] Referral ID Status Reason Start Date Expiration Date Visits Re quested Visits Authorized [id number] Closed 01/15/2022 01/15/2023 1 1 Additional Source Comments INFORMATION SOURCE (unrecogn ized section and content) DATE CREATED AUTHOR 11/12/2018 [facility] DATE CREATED AUTHOR AUTHOR'S ORGANIZ ATION 12/28/2022 [facility] Reason for Visit (unrecogniz ed section and content) Reason Comments Shoulder Injury Right shoulder pain. Patient was lifting something at work last week and felt a pop in her right shoulder. Pain continues. Specialty Diagnoses / Procedures Referred By Kwan t Referred To Contact Radiology Diagnoses Right shoulder pain, unspecified chronicity Procedures MRI SHOULDER RIGHT WO CONTRAST Yobani Duenas [address] [place] [id number] Referral ID Status Reason Start Date Expiration Date Visits Re quested Visits Authorized [id number] Closed 01/15/2022 01/15/2023 1 1 Care Teams (unrecognized sec tion and content) 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 Start Date End Date Sr Jesus Schmidt, DO [address] [place] [address] PCP - General Family Medicine 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 Start Date End Date Sr Jesus Schmidt, DO [address] [place] [address] PCP - General Family Medicine 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 Start Date End Date Jesus Schmidt Sr., DO [address] [place] [address] PCP - General Family Medicine 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 Start Date End Date Jesus Schmidt Sr., DO [address] [facility] [place] [address] PCP - General Family Medicine 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 Start Date End Date Jesus Schmidt Sr., DO [address] [facility] [place] [address] PCP - General Family Medicine 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 Start Date End Date Jesus Schmidt Sr., DO [address] [facility] [place] [address] PCP - General Family Medicine 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 Start Date End Date Jesus Schmidt Sr., DO [address] [facility] [place] [address] PCP - General Family Medicine 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 Start Date End Date Jesus Schmidt Sr., DO [address] [facility] [place] [address] PCP - General Family Medicine 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 Start Date End Date Jesus Schmidt Sr., DO [address] [facility] [place] [address] PCP - General Family Medicine 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 This clinical summary was aggregated from multiple sources. Caution should be exercised in using it in the provision of clinical care. This summary normalizes information from multiple sources, and as a consequence, information in this document may materially change the coding, format and clinical context of patient data. In addition, data may be omitted in some cases. CLINICAL DECISIONS SHOULD BE BASED ON THE PRIMARY CLINICAL RECORDS. [facility]. provides no warranty or guarantee of the accuracy or completeness of information in this document.
[2023-05-04] MEDS: LACTATED RINGER'S SOLUTION 1,000 ML 50 ML IV (12:30)
[2023-05-04 12:56] LABS: HCG Qualitative NEGATIVE (NEGATIVE)
--- NOTE | 2023-05-04 13:52 | PC.NURSE ---
1335- Final timeout completed. O2 placed on at 2l/min. HOB elevated. Right shoulder draped in sterile technique per Dr. Moore. Right shoulder cleansed with Chloraprep via Dr. Moore. 1337- Right interscalene block initiated. 1342- Right interscalene block completed. Patient tolerated it well. See posted vital signs.
--- NOTE | 2023-05-04 16:17 | PM.ORPRC ---
Procedure Note Date of procedure: 05/04/23 Pre-op diagnosis: Right shoulder adhesive capsulitis Post-op diagnosis: other (Right shoulder pain) Procedure: Operation: Right shoulder manipulation under anesthesia Operative procedure: After informed consent was obtained the patient was brought to the operating room where a general anesthetic was administered. Preoperatively regional block was placed. Patient was brought to the operating room and with forward flexion of the shoulder and abduction and rotation full range of motion was achieved without any resistance to range of motion. No adhesions were encountered. Patient was awakened and brought to the recovery room in stable condition. There were no intraoperative or immediate postoperative complications. Anesthesia: regional and General-LMA Surgeon: Adrian Callaway Estimated blood loss (mL): 0 Pathology: none sent Condition: stable Disposition: PACU
== END 2023-05-04 15:30 | disposition home or self-care (01) ==
PROVIDERS: Visit Provider Orthopaedic Surgery
PROC: (CPT 23700; principal; 2023-05-04 13:00)
DX: M75.01 Adhesive capsulitis of right shoulder (principal)
CPT/HCPCS: 23700; 36415; 64415; 84703; J1100; J1885; J2250; J2405; J2704; J2795

== ENCOUNTER 2023-11-18 12:23 | Outpatient (OUT) | payer OTHER, SELFPAY ==
--- NOTE | 2023-11-18 12:28 | MR_ITS ---
[address] [address] Patient Name: PAIGE FUNG MRN: [id number] date: 1990 Sex: F Assigned Patient Location: MRI Current Patient Location: Accession/Order Number: [id number] Exam Date: 11/18/2023 12:47 Report Date: 11/19/2023 08:50 At the request of: ZORAIDA LIPSCOMB Procedure: MR shoulder RT wo con EXAM: MR shoulder RT wo con REASON FOR EXAM: Right shoulder pain. TECHNIQUE: Multiplanar, multisequence imaging of the right shoulder was performed without contrast COMPARISON: None. FINDINGS: Study mildly degraded by motion. The AC joint is congruent with mild joint space narrowing capsular hypertrophy. No narrowing of the supraspinatus outlet. No fluid identified in the subacromial or subdeltoid bursa. Mild thickening and intermediate signal of the supraspinatus and infraspinatus tendons is consistent with tendinosis. No tear is evident. The teres minor tendon is intact. The subscapularis tendon is intact. The extracapsular biceps tendon is within the bicipital groove. Intracapsular biceps tendon is unremarkable. The rotator cuff musculature demonstrates symmetric bulk and signal. The humerus is centered on the glenoid. Low-grade chondrosis the glenohumeral cartilage. Diminutive appearance of the posterior superior labrum could reflect prior labral tear. No joint effusion. No significant thickening of the inferior axillary folds. The coracoclavicular ligament appears normal. No rotator interval synovitis. The quadrilateral space is patent. No axillary lymphadenopathy. MR/MR shoulder RT wo con IMPRESSION: 1. Mild rotator cuff tendinosis without tear. 2. Intact biceps tendon. 3. Possible posterior superior labral degeneration versus prior tear. 4. Low-grade chondrosis of the glenohumeral cartilage. 5. No MRI findings to suggest adhesive capsulitis. Electronically authenticated by: KYRA RM Date: 11/19/2023 08:50
--- OUTSIDE RECORDS SUMMARY | 2023-11-18 12:34 | XMS_ITS | CCD ---
Author Organization [facility] ion [facility] Care Team Providers Care Caseworker Protective Services Name Role Phone BRUNO VALDEZ Admitting Unavailable BRUNO VALDEZ Attending Unavailable BRUNO VALDEZ Consulting Unavailable House DO, Sr Jesus Butcher Primary Care Provider House Sr., DO Jesus Hadley Primary Care Provider House Sr., DOJesus Primary Care Provider ADRIAN LIPSCOMB Referring Unavailable HOUSE SR, JESUS P Primary [...] HOUSE SR, JESUS P Primary Care Unavailable LIPSCOMBADRIAN Referring Unavailable HOUSE SR, JESUS P Primary Care Unavailable LIPSCOMBADRIAN Referring Unavailable HOUSE SR, JESUS P Primary Care Unavailable LIPSCOMBADRIAN Referring Unavailable HOUSE SR, JESUS P Primary [...] SR, JESUS P Primary Care Unavailable LIPSCOMB, ADIRAN Hanson Referring Unavailable HOUSE SR, JESUS P Primary Care Unavailable HOUSE SR, JESUS P Primary Care Unavailable LIPSCOMB, ADRIAN Hanson Referring Unavailable LIPSCOMB, ADRIAN Hanson Referring Unavailable HOUSE SR, JESUS P Primary Care Unavailable HOUSE SR, JESUS P Primary Care Unavailable LIPSCOMB, ADRIAN Hanson Referring Unavailable LIPSCOMBADRIAN Referring Unavailable HOUSE SR, JESUS P Primary Care Unavailable HOUSE SR, JESUS P Primary Care Unavailable LIPSCOMB, ADRIAN C Referring Unavailable HOUSE SR, JESUS P Primary Care Unavailable BLOUNT, ADRIAN C Referring Unavailable HOUSE SR, JESUS P Primary Care Unavailable BLOUNT, ADRIAN C Referring Unavailable HOUSE SR, JESUS P Primary Care Unavailable BLOUNT, ADRIAN C Referring Unavailable HOUSE SR, JESUS P Primary Care Unavailable BLOUNT, ADRIAN C Referring Unavailable HOUSE SR, JESUS P Primary Care Unavailable HOUSE SR, JESUS P Primary Care Unavailable BLOUNT, ADRIAN C Referring Unavailable BLOUNT, ADRIAN C Referring Unavailable HOUSE SR, JESUS P Primary Care Unavailable BLOUNT, ADRIAN C Referring Unavailable HOUSE SR, JESUS P Primary Care Unavailable Medications Current Medications Medication Drug Class(es) Dates Sig (Normalized) Sig (Original) ondansetron 4 mg oral tablet (20 sources) Serotonin-3 Receptor Antagonist Start: 05-05-2017 take [...] SCREENING HUMAN PAPILLOMAVIRUS] Onset: 11-12-2018 Episodic Other connective tissue disease (2 sources) Adhesive capsulitis of right shoulder; Translations: [Adhesive capsulitis of right shoulder] Onset: 05-18-2023 Episodic Other female genital disorders (4 sources) [...] sources) Right shoulder; Translations: [Right shoulder] Onset: 07-18-2022 Past or Other Problems Problem Classification Problem Date Documented Date Episodic/Chronic Noninfectious gastroenteritis (20 sources) Colitis; Translations: [Noninfective gastroenteritis and colitis, unspecified] Onset: 05-05-2017 05-05-2017 Episodic Results Test Name Value Interpretation Reference Range Facility MRI SHOULDER RIGHT LOLIS Nye 01-30-2022 1. Mild supraspinatu s and infraspinatus tendinosis. No partial or full-thickness rotator cuff tear. 2. No discrete labral tear or paralabral cyst formation. RECOMMENDATIONS: Unavailable [facility] EXAMINATION: MRI OF THE RIGHT SHOULDER [...] unremarkable in appearance. No right axillary lymphadenopathy. [facility] Frank Brito MD - 01/30/2022 EXAMINATION: [...] tear or paralabral cyst formation. RECOMMENDATIONS: Unavailable [facility] Phone: MRI SHOULDER RIGHT WO CONTRA STOrdered By: Frank Brito on 01-30-2022 [facility] Phone: MRI SHOULDER RIGHT WO CONTRA STon 01-29-2022 Radiology Study observation (narrative) [facility] Phone: XR SHOULDER RIGHT (MIN 2 VIE WS)on 01-06-2022 No radiographic evidence of acute osseous abnormality of the right shoulder seen. [facility] EXAMINATION: THREE XRAY VIEWS OF THE RIGHT SHOULDER 01/06/2022 4:36 pm COMPARISON: None. HISTORY: ORDERING SYSTEM PROVIDED HISTORY: pain injury TECHNOLOGIST PROVIDED HISTORY: pain injury FINDINGS: No radiographic evidence of acute fracture or dislocation is seen. No periarticular calcification changes are seen. No radiopaque foreign body is seen. [facility] Yobani Griffith MD - 01/06/2022 EXAMINATION: THREE XRAY VIEWS [...] osseous abnormality of the right shoulder seen. [facility] Phone: Radiology Study observation (narrative) [facility] Phone: XR SHOULDER RIGHT (MIN 2 VIE WS)Ordered By: Yobani Johnson on 01-06-2022 [facility] Phone: PAP ACOG PANEL 2: 21 to 29on 11-09-2018 Age Gdln ACOG Testing 21-29 Normal [facility] Comment on above: Performed By: #### [id number] #### [facility] [address] [place] [address] Jovanna Pelletier DIAGNOSIS: Comment Normal [facility] Comment on above: Result Comment: NEGA TIVE FOR INTRAEPITHELIAL LESION OR MALIGNANCY. THIS SPECIMEN WAS RESCREENED PART OF OUR ELECTRICAL ESTIMATOR PROGRAM. Performed By: #### [id number] #### [facility] [address] [address] Jovanna Pelletier Methodology: Comment Normal [facility] Comment on above: Result Comment: This liquid based SurePath(R) pap test was screened with the assistance of an image guided system. Performed By: #### [id number] #### [facility] [address] [address] Jovanna Pelletier Note: Comment Normal [facility] Comment on above: Result Comment: The Pap smear is a screening test designed to aid in the detection of premalignant and malignant conditions of the uterine cervix. It is not a diagnostic procedure and should not be used as the sole means of detecting cervical cancer. Both false-positive and false-negative reports do occur. . Performed By: #### [id number] #### [facility] [address] [place] [address] Jovanna Pelletier Performed by: Comment Normal [facility] Comment on above: Result Comment: Yanet Person, Contemporary Or Modern Dancer (ASCP) Performed By: #### [id number] #### [facility] [address] [place] [address] Jovannabhumi Pelletier QC reviewed by: Comment Normal [facility] Comment on above: Result Comment: Christy Palomino Contemporary Or Modern Dancer (ASCP) Performed By: #### [id number] #### [facility] [address] [place] [address] Jovanna Pelletier Reflex Criteria: Comment [facility] Comment on above: Result Comment: The HPV DNA reflex criteria were not met with this specimen result therefore, no HPV testing was performed. . Performed By: #### [id number] #### [facility] [address] [place] [address] Jovanna Pelletier Specimen adequacy: Comment Normal [facility] Comment on above: Result Comment: Sati sfactory for evaluation. Areas of partially obscuring inflammatory exudate are present. Partially obscuring thick areas are present. Performed By: #### [id number] #### [facility] [address] [place] [address] Jovanna Pelletier . . Normal [facility] Comment on above: Performed By: #### [id number] #### [facility] [address] [place] [address] Jovanna Pelletier CHLAMYDIA/GONOCOCCUS KORTNEY (SW AB/URINE/PAPon 11-08-2018 Chlamydia trachomatis, KORTNEY Negative Normal Negative [facility] Comment on above: Performed By: #### C T/NGNA #### [facility] [address] [place] [address] Jovanna Pelletier Neisseria gonorrhoeae, KORTNEY Negative Normal Negative [facility] Comment on above: Performed By: #### C T/NGNA #### [facility] [address] [address] Jovanna Pelletier VAGINITIS/VAGINOSIS DNA PROB Giancarlo 11-06-2018 Alma Rosa species Negative Normal Negative [facility] Comment on above: Performed By: #### V AGINT #### [facility] [address] [address] Jovanna Pelletier Gardnerella vaginalis Negative Normal Negative [facility] Comment on above: Performed By: #### V AGINT #### [facility] [address] [address] Jovanna Pelletier Trichomonas vaginalis Negative Normal Negative [facility] Comment on above: Performed By: #### V AGINT #### [facility] [address] [address] Jovanna Pelletier Vital Signs Date Time Vital Sign Value Performing Clinician Faci lity 01-06-2022 16:17-0400 Body temperature 99.19 [degF] Sr House DO [facility] 01-06-2022 16:17-0400 Diastolic blood pressure 83 mm[Hg] Sr House DO Work [facility] 01-06-2022 16:17-0400 Heart rate 90 /min Sr House DO Work Phone: [facility] 01-06-2022 16:17-0400 Respiratory rate 16 /min Sr House DO Work Phone: [facility] 01-06-2022 16:17-0400 SaO2% (BldA) [Mass fraction] 100 % Sr House DO Work Phone: [facility] 01-06-2022 16:17-0400 Systolic blood pressure 147 mm[Hg] Sr House DO Work Phone: [facility] Encounters Encounter Date Encounter Type Care Provider Facility Start: 07-02-2023 End: 07-03-2023 ambulatory ADRIAN [facility] Start: 06-30-2023 End: 07-01-2023 ambulatory [facility] Start: 06-25-2023 End: 06-26-2023 ambulatory [facility] Start: 06-11-2023 End: 06-12-2023 ambulatory JESUS FERRARI [facility] Start: 06-08-2023 End: 06-08-2023 Subsequent hospital visit by physician Geri Inman PTA [facility] Physical Therapy Start: 06-04-2023 End: 06-05-2023 ambulatory JESUS FERRARI [facility] Start: 06-03-2023 End: 06-04-2023 ambulatory JESUS FERRARI [facility] Start: 05-28-2023 End: 05-29-2023 ambulatory JESUS FERRARI [facility] Start: 05-28-2023 End: 05-28-2023 Subsequent hospital visit by physician Geri Inman PTA [facility] Physical Therapy Comment on above: Arrived Start: 05-27-2023 End: 05-28-2023 ambulatory JESUS FERRARI [facility] Start: 05-27-2023 End: 05-27-2023 Subsequent hospital visit by physician Geri Inman PTA [facility] Physical Therapy Comment on above: Arrived Start: 05-21-2023 End: 05-22-2023 ambulatory JESUS FERRARI [facility] Start: 05-19-2023 End: 05-20-2023 ambulatory JESUS FERRARI [facility] Start: 05-18-2023 End: 05-19-2023 ambulatory JESUS FERRARI [facility] Start: 05-15-2023 End: 05-15-2023 Subsequent hospital visit by physician Juvenal Chung PT [facility] Physical Therapy Start: 05-13-2023 End: 05-14-2023 ambulatory JESUS FERRARI [facility] Start: 05-11-2023 End: 05-11-2023 Subsequent hospital visit by physician Jazmín Feldman PTA [facility] Physical Therapy Start: 05-08-2023 End: 05-09-2023 ambulatory JESUS FERRARI [facility] Start: 05-07-2023 End: 05-08-2023 ambulatory JESUS [facility] Start: 05-05-2023 End: 05-06-2023 ambulatory [facility] Start: 05-05-2023 End: 05-05-2023 Subsequent hospital visit by physician Juvenal Chung PT [facility] Physical Therapy Comment on above: Arrived Start: 08-08-2022 End: 08-09-2022 ambulatory [facility] Start: 08-06-2022 End: 08-07-2022 ambulatory JESUS [facility] Start: 07-30-2022 End: 07-31-2022 ambulatory JESUS [facility] Start: 07-30-2022 End: 07-30-2022 Subsequent hospital visit by physician Jazmín Feldman PTA [facility] Physical Therapy Comment on above: Arrived Start: 07-28-2022 End: 07-29-2022 [facility] Start: 07-28-2022 End: 07-28-2022 Subsequent hospital visit by physician Julio C Adams PTA [facility] Physical Therapy Comment on above: Arrived Start: 07-25-2022 End: 07-26-2022 ambulatory JESUS [facility] Start: 07-25-2022 End: 07-25-2022 Subsequent hospital visit by physician Julio C Adams PTA [facility] Physical Therapy Comment on above: Arrived Start: 07-23-2022 End: 07-24-2022 [facility] Start: 07-23-2022 End: 07-23-2022 Subsequent hospital visit by physician Julio C Adams PTA [facility] Physical Therapy Comment on above: Arrived Start: 07-21-2022 End: 07-22-2022 ambulatory [facility] Start: 07-21-2022 End: 07-21-2022 Subsequent hospital visit by physician Julio C Adams PTA [facility] Physical Therapy Comment on above: Arrived Start: 07-18-2022 End: 07-19-2022 [facility] Start: 07-16-2022 End: 07-17-2022 ambulatory [facility] Start: 07-16-2022 End: 07-16-2022 Subsequent hospital visit by physician Julio C Adams PTA [facility] Physical Therapy Comment on above: Arrived Start: 07-14-2022 End: 07-15-2022 [facility] Start: 07-14-2022 End: 07-14-2022 Subsequent hospital visit by physician Julio C Adams PTA [facility] Physical Therapy Comment on above: Arrived Start: 07-11-2022 End: 07-12-2022 [facility] Start: 07-09-2022 End: 07-10-2022 [facility] Start: 07-09-2022 End: 07-09-2022 Subsequent hospital visit by physician Julio C Adams PTA [facility] Physical Therapy Comment on above: Arrived Start: 07-07-2022 End: 07-08-2022 [facility] Start: 07-07-2022 End: 07-07-2022 Subsequent hospital visit by physician Julio C Adams PTA [facility] Physical Therapy Comment on above: Arrived Start: 07-04-2022 End: 07-05-2022 [facility] Start: 07-04-2022 End: 07-04-2022 Subsequent hospital visit by physician Amaury Quiñonez PT [facility] Physical Therapy Comment on above: Arrived Start: 07-02-2022 End: 07-02-2022 Subsequent hospital visit by physician Julio C Adams PTA [facility] Physical Therapy Comment on above: Arrived Start: 06-30-2022 End: 06-30-2022 Subsequent hospital visit by physician Julio C Adams PTA [facility] Physical Therapy Start: 06-24-2022 End: 06-24-2022 Subsequent hospital visit by physician Amaury Quiñonez PT [facility] Physical Therapy Comment on above: Arrived Start: 06-20-2022 End: 06-20-2022 Subsequent hospital visit by physician Gianna Thompson PT [facility] Physical Therapy Comment on above: Arrived Start: 01-29-2022 End: 01-31-2022 Subsequent hospital visit by physician [facility] Comment on above: Right shoulder pain, unspecified chronicity Start: 01-06-2022 End: 01-06-2022 Emergency department patient visit Sr House DO Work Phone: [facility] ED Comment on above: Strain of right mariposau mindyer, initial encounter (Primary Dx) Start: 11-04-2018 End: 11-04-2018 Patient encounter procedure [facility] Facility:H1 Procedures Date Procedure Procedure Detail Performing Clinician Start: 01-29-2022 Mri any jt upper extremity w/o contrast matrl Yobani Duenas Work Phone: Start: 01-06-2022 Radex shoulder compl ete minimum 2 views Rain Meléndezis DO Work Phone: Plan of Treatment Date Care Activity Detail Author Start: 07-02-2023 End: 07-02-2023 Patient encounter procedure 07/02/2023 12:30 PM EDT Appointment [facility] [address] [place] [phone] Jazmín Feldman, PLANT ATTENDANT OR ASSISTANT OPERATOR [facility] Start: 06-30-2023 End: 06-30-2023 Patient encounter procedure 06/30/2023 12:30 PM EDT Appointment [facility] [address] [place] [phone] Juvenal Chung, PT [facility] Start: 06-25-2023 End: 06-25-2023 Patient encounter procedure 06/25/2023 12:30 PM EDT Appointment [facility] [address] [place] [phone] Jazmín Feldman, PLANT ATTENDANT OR ASSISTANT OPERATOR [facility] Start: 06-22-2023 End: 06-22-2023 Patient encounter procedure 06/22/2023 1:45 PM EDT Appointment [facility] [address] [place] [phone] Juvenal Chung, PT [facility] Start: 06-18-2023 End: 06-18-2023 Patient encounter procedure 06/18/2023 12:00 PM EDT Appointment [facility] [address] [place] [phone] Geri Inman, PLANT ATTENDANT OR ASSISTANT OPERATOR [facility] Start: 06-15-2023 End: 06-15-2023 Patient encounter procedure 06/15/2023 10:15 AM EDT Appointment [facility] [address] [place] [phone] Geri Inman PTA [facility] Start: 06-11-2023 End: 06-11-2023 Patient encounter procedure 06/11/2023 12:30 PM EDT Appointment [facility] [address] [place] [phone] Jazmín Feldman PTA [facility] Physical Therapy Start: 06-11-2023 End: 06-11-2023 Patient encounter procedure 06/11/2023 8:30 AM EDT Appointment [facility] [address] [place] [phone] Juvenal Chung, PT [facility] Physical Therapy Start: 06-08-2023 End: 06-08-2023 Patient encounter procedure 06/08/2023 10:15 AM EDT Appointment [facility] [address] [place] [phone] Geri Inman PTA [facility] Physical Therapy Start: 06-04-2023 End: 06-04-2023 Patient encounter procedure [facility] Start: 06-03-2023 End: 06-03-2023 Patient encounter procedure [facility] Start: 06-01-2023 End: 06-01-2023 Patient encounter procedure 06/01/2023 9:45 AM EDT Appointment [facility] [address] [place] [phone] Juvenal Chung, PT [facility] Physical Therapy Start: 05-28-2023 End: 05-28-2023 Patient encounter procedure 05/28/2023 12:30 PM EST Appointment [facility] [address] [place] [phone] Geri Inman, JENNIFER [facility] Start: 05-28-2023 End: 05-28-2023 Patient encounter procedure 05/28/2023 9:15 AM EST Appointment [facility] [address] [place] [phone] Juvenal Chung, PT [facility] Start: 05-27-2023 End: 05-27-2023 Patient encounter procedure 05/27/2023 11:15 AM EST Appointment [facility] [address] [place] [phone] Geri Inman PTA [facility] Physical Therapy Start: 05-25-2023 End: 05-25-2023 Patient encounter procedure 05/25/2023 9:30 AM EST Appointment [facility] [address] [place] [phone] Geri Inman PTA [facility] Physical Therapy Start: 05-21-2023 End: 05-21-2023 Patient encounter procedure 05/21/2023 10:00 AM EST Appointment [facility] [address] [place] [phone] Juvenal Chung, PT [facility] Physical Therapy Start: 05-19-2023 End: 05-19-2023 Patient encounter procedure 05/19/2023 9:15 AM EST Appointment [facility] Physical Therapy [address] [place] [phone] Juvenal Chung, PT [facility] Physical Therapy Start: 05-18-2023 End: 05-18-2023 Patient encounter procedure 05/18/2023 10:15 AM EST Appointment [facility] Physical Therapy [address] [place] [phone] Geri Inman PTA [facility] Physical Therapy Start: 05-15-2023 End: 05-15-2023 Patient encounter procedure 05/15/2023 9:45 AM EST Appointment [facility] [address] [place] [phone] Juvenal Chung, PT [facility] Physical Therapy Start: 05-13-2023 End: 05-13-2023 Patient encounter procedure 05/13/2023 10:30 AM EST Appointment [facility] [address] [place] [address] [phone] Geri Inman PTA [facility] Physical Therapy Start: 05-11-2023 End: 05-11-2023 Patient encounter procedure 05/11/2023 9:30 AM EST Appointment [facility] [address] [place] [phone] Jazmín Feldman, JENNIFER [facility] Physical Therapy Start: 05-08-2023 End: 05-08-2023 Patient encounter procedure 05/08/2023 10:15 AM EST Appointment [facility] [address] [place] [address] Jazmín Feldman PTA [facility] Physical Therapy Start: 05-07-2023 Subsequent hospital visit by physician 05/07/2023 12:45 PM EST Hospital Encounter [facility] Physical Therapy [address] [place] [address] Geri Inman, PLANT ATTENDANT OR ASSISTANT OPERATOR [facility] Physical Therapy Start: 10-21-2022 Influenza vaccination B ON [facility] Start: 08-08-2022 End: 08-08-2022 Patient encounter procedure 08/08/2022 Appointment Physical Therapy Amaury Quiñonez, PT [facility] Physical Therapy Start: 08-06-2022 End: 08-06-2022 Patient encounter procedure 08/06/2022 Appointment Physical Therapy Julio C Adams PTA [facility] Physical Therapy Start: 08-04-2022 End: 08-04-2022 Patient encounter procedure 08/04/2022 Appointment Physical Therapy Julio C Adams PTA [facility] Physical Therapy Start: 08-01-2022 End: 08-01-2022 Patient encounter procedure 08/01/2022 Appointment Physical Therapy Nova Meyer, MARIA ESTHER [facility] Physical Therapy Start: 07-30-2022 End: 07-30-2022 Patient encounter procedure [facility] Physical Therapy Start: 07-28-2022 End: 07-28-2022 Patient encounter procedure 07/28/2022 Appointment Physical Therapy Julio C Adams PTA [facility] Physical Therapy Start: 07-25-2022 End: 07-25-2022 Patient encounter procedure 07/25/2022 Appointment Physical Therapy Julio C Adams PTA [facility] Physical Therapy Start: 07-23-2022 End: 07-23-2022 Patient encounter procedure 07/23/2022 Appointment Physical Therapy Julio C Adams PTA [facility] Start: 07-21-2022 End: 07-21-2022 Patient encounter procedure 07/21/2022 Appointment Physical Therapy Julio C Adams PTA [facility] Physical Therapy Start: 07-18-2022 End: 07-18-2022 Patient encounter procedure 07/18/2022 Appointment Physical Therapy Julio C Adams PTA [facility] Physical Therapy Start: 07-16-2022 End: 07-16-2022 Patient encounter procedure 07/16/2022 Appointment Physical Therapy Julio C Adams PLANT ATTENDANT OR ASSISTANT OPERATOR [facility] Start: 07-16-2022 Subsequent hospital visit by physician 07/16/2022 Hospital Encounter Physical Therapy Julio C Adams PTA [facility] Start: 07-14-2022 End: 07-14-2022 Patient encounter procedure 07/14/2022 Appointment Physical Therapy Julio C Adams PTA [facility] Start: 07-11-2022 End: 07-11-2022 Patient encounter procedure 07/11/2022 Appointment Physical Therapy Julio C Adams PTA [facility] Start: 07-09-2022 End: 07-09-2022 Patient encounter procedure 07/09/2022 Appointment Physical Therapy Julio C Adams PTA [facility] Start: 07-07-2022 End: 07-07-2022 Patient encounter procedure 07/07/2022 Appointment Physical Therapy Julio C Adams PTA [facility] Start: 07-04-2022 End: 07-04-2022 Patient [...] Hospital Encounter Physical Therapy Julio C Adams PTA [facility] Start: 06-27-2022 End: 06-27-2022 Patient encounter procedure 06/27/2022 Appointment Physical Therapy Amaury Quiñonez, PT [facility] Start: 06-24-2022 End: 06-24-2022 Patient encounter procedure 06/24/2022 Appointment Physical Therapy Amaury Quiñonez, PT [facility] Start: 11-23-2021 Screening for malign ant neoplasm of cervix [facility] Start: 10-21-2021 Influenza vaccination Flu vaccine (# 1) [facility] Start: 11-23-2012 Screening for malign ant neoplasm of cervix Pap smear [facility] Start: 11-23-2010 DTaP/Tdap/Td vaccine (1 - Tdap) DTaP/Tdap/Td vaccine (1 - Tdap) [facility] Start: 11-23-2009 Hepatitis C screening Hepatitis C sc reen [facility] Start: 11-23-2006 HIV screening HIV screen [facility] Start: 2003 Depression Screen Depression Screen [facility] Start: 11-23-1997 Pneumococcal 0-64 ye ars Vaccine (1 - PCV) Pneumococcal 0-64 years Vaccine (1 - PCV) [facility] Start: 11-23-1997 Pneumococcal 0-64 ye ars Vaccine (1 of 2 - PCV) Pneumococcal 0-64 years Vaccine (1 of 2 - PCV) [facility] Start: 11-23-1992 Varicella vaccine (1 of 2 - 2-dose childhood series) Varicella vaccine (1 of 2 - 2-dose childhood series) [facility] Start: 05-23-1992 COVID-19 Vaccine (#1) COVID-19 Vacci ne (#1) [facility] Start: 1991 Hepatitis B vaccine (1 of 3 - 3-dose series) Hepatitis B vaccine (1 of 3 - 3-dose series) [facility] Payers Date Payer Category Payer Unknown [id number] 2021 Unknown GENERIC SELF-INS URED GENERIC SELF-INSURED [id number] 2021-Present [address] [place] [address] [id number] 2021 Unknown 2021 [id number] .[id number] 1991 Unknown [id number] 2.16.840.1.244701.3.579.2.593 1991 Unknown [id number] 2.16.840.1.918337.3.579.2.173 1991 Unknown [id number] 2.16.840.1.751003.3.579.2. 1991 Unknown [id number] 2.16.840.1.048511.3.579.2. 1991 Unknown [id number] 2.16.840.1.306218.3.579.2.173 1991 Unknown [id number] 2.16.840.1.669065.3.579.2. 1991 Unknown [id number] 2.16.840.1.060016.3.579.2. 1991 Unknown [id number] 2.16.840.1.587761.3.579.2. 1991 Unknown [id number] 2.16.840.1.682541.3.579.2. 1991 Unknown [id number] 2.16.840.1.440094.3.579.2. 1991 Unknown [id number] 2.16.840.1.275386.3.579.2. 1991 Unknown [id number] 2.16.840.1.739819.3.579.2. 1991 Unknown [id number] 2.16.840.1.218432.3.579.2. 1991 Unknown [id number] 2.16.840.1.262441.3.579.2.173 1991 Unknown [id number] 2.16.840.1.087033.3.579.2. 1991 Unknown [id number] 2.16.840.1.899973.3.579.2. 1991 Unknown [id number] 2.16.840.1.917160.3.579.2. 1991 Unknown [id number] 2.16.840.1.862881.3.579.2.173 1991 Unknown [id number] 2.16.840.1.564998.3.579.2.173 1991 Unknown [id number] 2.16.840.1.321594.3.579.2.173 1991 Unknown [id number] 2.16.840.1.787016.3.579.2.173 1991 Unknown [id number] 2.16.840.1.033315.3.579.2.173 1991 Unknown [id number] 2.16.840.1.675399.3.579.2.173 1991 Unknown [id number] 2.16.840.1.817076.3.579.2.173 1991 Unknown [id number] 2.16.840.1.305113.3.579.2.173 1991 Unknown [id number] 2.16.840.1.712238.3.579.2.173 1991 Unknown [id number] 2.16.840.1.506527.3.579.2.173 1991 Unknown [id number] 2.16.840.1.128141.3.579.2.173 1991 Unknown [id number] 2.16.840.1.624864.3.579.2.173 1959 Unknown [id number] Social History Date Type Detail Facility Start: 05-05-2017 [facility] Phone: History of tobacco use Cigarette Smoker [employer] [facility] [employer] Phone: Start: 05-05-2017 End: 01-06-2022 Cigarettes smoked current (pack per day) - Reported 0.5 [facility] Phone: Start: 05-05-2017 Tobacco use and exposure Smoke less tobacco non-user [facility] Phone: Start: 1990 Sex Assigned At Not on file [facility] Start: 12-27-2021 End: 01-06-2022 Exposure to SARS-CoV-2 (event) Not sure [facility] Start: 01-06-2022 Tobacco use panel [facility] Clinical Notes 01-06-2022 to 06-08-2023 Geri Inman, PLANT ATTENDANT OR ASSISTANT OPERATOR - 06/08/2023 10:15 AM Geri Medrano, PLANT ATTENDANT OR ASSISTANT OPERATOR - 05/28/2023 12:30 PM Geri Pollard, PLANT ATTENDANT OR ASSISTANT OPERATOR - 05/27/2023 11:15 AM Jazmín Jamison PLANT ATTENDANT OR ASSISTANT OPERATOR - 05/11/2023 9:30 AM ESTAttachments Note Date & Type Note Facility 06-08-2023 History of Presen t illness Narrative [facility] Inpatient/Observation/Outpatien t Rehabilitation Date: 06/08/2023 Patient Name: Paige Panchal [x] Outpatient : 1990 07/05/23 Plan of Care/Recert ends [x] Pt cancelled due to: [x] No Reason Given Therapist/Metal Tank Erector will attempt to see this patient, at our earliest opportunity. Geri Inman PTA Date: 06/08/2023 documented in this encounter [facility] 05-28-2023 History of Presen t illness Narrative [facility] Outpatient Physical Therapy Daily Note Patient: Paige Panchal : 1990 CSN #: [id number] Referring Physician: Adrian Lipscomb MD Date: 05/28/2023 Diagnosis: Adhesive capsulitis of R shoulder, M75.01 Treatment Diagnosis: Adhesive capsulitis of R shoulder, s/p R shoulder manipulation Onset Date: 05/04/23 PT Insurance Information: Yassine Watts Total # of Visits Approved: 18 Per Physician Order Total # of Visits to Date: 9 No Show: 0 Canceled Appointment: 0 07/05/23 Plan of Care/Recert Due Pre-Treatment Pain: 4/10 Subjective: Pt reports slight increased pain 4/10 today. A little sore after session yesterday. Exercises: Exercise 1: HEP: Therapy ball circles x30 ea direction, Supine cane flexion x10 or table slides x10, ER with cane or pec stretch in doorway 10 sec x10, posterior capsule stretch 2x20 sec hold. All 4-6x per day Exercise 2: Pulleys x6 min Exercise 3: Shrugs/retractions 2x10 with 4# dumbbells Exercise 5: therapy ball circles x10 ea --on wall today Exercise 6: table slides flexion and scaption 2x10 ea -performed on wall today Exercise 8: Cane external rotation, cane extension x10 ea -only ER today Exercise 9: UBE retro x5min Exercise 10: rows/ext BTB 2x10 ea --YTB today Exercise 11: Bilateral YTB external rotation 2x10 Exercise 12: Therapy ball roll up wall stretch 10x10 Exercise 13: Supine flexion and bench press with 1# bar x10 ea Manual: Other: PROM into flexion, external rotation Modality: Modality Flow Sheet: Performed (X) Tx Modality X Electrical Stim: IFC/CP to R shoulder x15 min to reduce discomfort Assessment Assessment: Pt arrives to therapy with increased soreness after last session yesterday. Pt performed retractions and LAE with YTB today compared to BTB due to slight increased pain/tightness. Pt with good tolerance to AAROM ball on wall and wall slides. Continued with manual PROM to R shoulder in flexion and ER, with pt demonstrating increased tightness. Applied IFC/CP post session to reduce soreness with min relief noted. Activity Tolerance Activity Tolerance: Patient tolerated treatment well Patient Education Patient Education: HEP Pt verbalized/demonstrated good understanding: [x] Yes [] No, pt required further clarification. Post Treatment Pain: 10 Plan Plan Frequency: 2-3 Plan weeks: 6 Goals (Total # of Visits to Date: 9) Short Term Goals Time Frame for Short Term Goals: 3 weeks Short Term Goal 1: Patient will be initiated with a HEP-met Short Term Goal 2: Patient will tolerate manual interventions to improve shoulder ROM. -met Mcfp Goals Time Frame for Mcfp Goals : 6 weeks Preliminary School Psychologist Goal 1: Patient will be independent and compliant with a HEP Mcfp Goal 2: Patient will improve R shoulder ROM to match her L for work activities. -progressing Preliminary School Psychologist Goal 3: Patient will improve R shoulder strength to >/= 4/5 in all planes for work activities. -progressing Preliminary School Psychologist Goal 4: Patient will report decreased pain to <5/10 at worst. Preliminary School Psychologist Goal 5: Patient will be able to lift 10# overhead to simulate work activities. Minutes Tracking: Time In: 1231 Time Out: 1328 Minutes: 57 Timed Code Treatment Minutes: 54 Minutes Treatment Charges: Code Total Mins Units Time In/Out [] Evaluation [] Low [] Moderate [] High [] Re-Evaluation 42995 80970 [id number] 54450 [x] Ther Exercise 24242 32 2 [id number] [x] Manual Therapy 32447 10 1 7463-8623 [x] Unattend Estim 51510 15 1 8146-0103 [] Ultrasound 31327 [] Iontophoresis 18896 [] Neuro Fanny 87353 [] Aquatics 43723 [] Traction 06392 [] Work Hardening 06665 [] FCE 83822 Total Treatment time 57 mins Total Time of Time Codes 54 mins Geri Inman PTA Date: 05/28/2023 documented in this encounter [facility] 05-27-2023 History of Presen t illness Narrative [facility] Outpatient Physical Therapy Daily Note Patient: Paige Panchal : 1990 CSN #: [id number] Referring Physician: Adrian Lipscomb MD Date: 05/27/2023 Diagnosis: Adhesive capsulitis of R shoulder, M75.01 Treatment Diagnosis: Adhesive capsulitis of R shoulder, s/p R shoulder manipulation Onset Date: 05/04/23 PT Insurance Information: Yassine Watts Total # of Visits Approved: 18 Per Physician Order Total # of Visits to Date: 8 No Show: 0 Canceled Appointment: 0 07/05/23 Plan of Care/Recert Due Pre-Treatment Pain: 2/10 Subjective: Pt reports 2/10 shoulder pain. She states her wants to do an MRI, waiting for approval. Pt states work is going well. Exercises: Exercise 1: HEP: Therapy ball circles x30 ea direction, Supine cane flexion x10 or table slides x10, ER with cane or pec stretch in doorway 10 sec x10, posterior capsule stretch 2x20 sec hold. All 4-6x per day Exercise 2: Pulleys x6 min Exercise 5: therapy ball circles x10 ea --on wall today Exercise 6: table slides flexion and scaption 2x10 ea -not today Exercise 8: Cane external rotation, cane extension x10 ea Exercise 9: UBE retro x5min Exercise 10: rows/ext BTB 2x12 ea Exercise 11: Bilateral YTB external rotation 2x10 Exercise 12: Therapy ball roll up wall stretch 10x10 Manual: Joint Mobilization: GH mobs: lateral distraction grade II/III Other: PROM into flexion, external rotation Modality: Modality Flow Sheet: Performed (X) Tx Modality X Electrical Stim: IFC/CP x15 min to R anterior shoulder to reduce discomfort, pt supine Assessment Assessment: Pt with improved pain rating this date. Continued with exercises performing increased reps and progressing pt with ball on wall AAROM with good tolerance and no reports of increased pain t/o. 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 Ended session with IFC/CP to reduce post exercise soreness with relief noted. Will continue to progress Activity Tolerance Activity Tolerance: Patient tolerated treatment well Patient Education Patient Education: HEP Pt verbalized/demonstrated good understanding: [x] Yes [] No, pt required further clarification. Post Treatment Pain: 1-2 Plan Plan Frequency: 2-3 Plan weeks: 6 Goals (Total # of Visits to Date: 8) Short Term Goals Time Frame for Short Term Goals: 3 weeks Short Term Goal 1: Patient will be initiated with a HEP-met Short Term Goal 2: Patient will tolerate manual interventions to improve shoulder ROM. -met Preliminary [employer] Psychologist Goals Time Frame for Mcfp Goals : 6 weeks Mcfp Goal 1: Patient will be independent and compliant with a HEP Mcfp Goal 2: Patient will improve R shoulder ROM to match her L for work activities. -progressing Mcfp Goal 3: Patient will improve R shoulder strength to >/= 4/5 in all planes for work activities. -progressing Preliminary School Psychologist Goal 4: Patient will report decreased pain to <5/10 at worst. Preliminary School Psychologist Goal 5: Patient will be able to lift 10# overhead to simulate work activities. Minutes Tracking: Time In: 1116 Time Out: 1212 Minutes: 56 Timed Code Treatment Minutes: 54 Minutes Treatment Charges: Code Total Mins Units Time In/Out [] Evaluation [] Low [] Moderate [] High [] Re-Evaluation 18365 26429 11197 21909 [x] Ther Exercise 59304 24 2 2448-4134 [x] Manual Therapy 60030 15 1 1041-2721 [x] Unattend Estim 25646 15 1 [phone] [] Ultrasound 04381 [] Iontophoresis 80317 [] Neuro Fanny 52042 [] Aquatics 70192 [] Traction 92503 [] Work Hardening 24646 [] FCE 94312 Total Treatment time 56 mins Total Time of Time Codes 54 mins Geri Inman, PLANT ATTENDANT OR ASSISTANT OPERATOR Date: 05/27/2023 documented in this encounter [facility] 05-11-2023 History of Presen t illness Narrative [facility] Inpatient/Observation/Outpatien t Rehabilitation Date: 05/11/2023 Patient Name: Paige Panchal [] Inpatient Acute/Observation [x] Outpatient : 1990 [x] Pt cancelled due to: [x] No Reason Given [] Sick/ill [] Other: Therapist/Metal Tank Erector will attempt to see this patient, at our earliest opportunity. Jazmín Feldman, PLANT ATTENDANT OR ASSISTANT OPERATOR Date: 05/11/2023 documented in this encounter [facility] 07-30-2022 History of Presen t illness Narrative [facility] Outpatient Physical Therapy Daily Note Patient: Paige Panchal : 1990 CSN #: [id number] Referring Physician: Adrian Lipscomb MD Date: 07/30/2022 Treatment Diagnosis: R SHLD pain Onset Date: 01/05/22 PT Insurance Information: Yassine Watts [facility] approval from 05/13/22-07/04/22 Total # of Visits Approved: 18 Per Physician Order Total # of Visits to Date: 16 No Show: 0 Canceled Appointment: 1 08/01/22 Plan of Care/Recert Due Pre-Treatment Pain: 07/30 Subjective: Pt states that shoulder is slowly [...] order to perform overhead ADLS - progressing Mcfp Goals Time Frame for Preliminary School Psychologist Goals : 6 weeks Mcfp Goal 1: Pt will be safe and independent with her HEP Preliminary School Psychologist Goal 2: Pt will increase R SHLD IR to >/=L2 and ER to >/=65 in order to reduce painful movement - progressing Preliminary School Psychologist Goal 3: Pt will increase R SHLD strength to >/=4+/5 in order to return to lifting at work - progressing Mcfp Goal 4: Pt will report 70% improvement in symptoms - progressing Minutes Tracking: Time In: 1445 Time Out: 1545 Minutes: 60 Timed Code Treatment Minutes: 57 Minutes Treatment Charges: Code Total Mins Units Time In/Out [] Evaluation [] Low [] Moderate [] High [] Re-Evaluation 88427 19940 61578 88738 [x] Ther Exercise 45912 33 2 14:45-15:18 [] Manual Therapy 53319 [x] Unattend Estim 15465 15 1 15:30-15:45 [x] Ultrasound 55604 9 1 15:20-15:29 [] Iontophoresis 82277 [] Neuro Fanny 79132 [] Aquatics 46596 [] Traction 90936 [] Work Hardening 74564 [] FCE 02608 Total Treatment time 60 mins Total Time of Time Codes 57 mins Jazmín Feldman, PLANT ATTENDANT OR ASSISTANT OPERATOR Date: 07/30/2022 documented in this encounter [facility] [facility] Phone: 07-28-2022 History of Presen t illness Narrative SPOKE WITH DROP TESTER MELISSA WINKLER FOR DATE EXTENTION THROUGH 08-08-22 SHE WILL FAX US WITH NEW DATE. documented in this encounter [facility]: 07-09-2022 History of Presen t illness Narrative [facility] Outpatient Physical Therapy Daily Note Patient: Paige Panchal : 1990 CSN #: [id number] Referring Physician: Date: 07/09/2022 Treatment Diagnosis: R SHLD pain Onset Date: 01/05/22 PT Insurance Information: Yassine Watts [facility] approval from 05/13/22-07/04/22 Total # of Visits Approved: 18 Per Physician Order Total # of Visits to Date: 7 No Show: 0 Canceled Appointment: 1 Pre-Treatment Pain: 610 Subjective: Pt states not getting any better, [...] pt required further clarification. Post Treatment Pain: 610 Plan Plan Frequency: 3x/wk Plan weeks: 6 weeks Goals (Total # of Visits to Date: 7) Short Term Goals Time Frame for Short Term Goals: 3 weeks Short Term Goal 1: Pt will be educated on her POC And HEP-met Short Term Goal 2: Pt will increase R SHLD flex/abd to >/=130 in order to perform overhead ADLS - progressing Mcfp Goals Time Frame for Mcfp Goals : 6 weeks Mcfp Goal 1: Pt will be safe and independent with her HEP Preliminary [employer] Psychologist Goal 2: Pt will increase R SHLD IR to >/=L2 and ER to >/=65 in order to reduce painful movement - progressing Preliminary School Psychologist Goal 3: Pt will increase R SHLD strength to >/=4+/5 in order to return to lifting at work - progressing Preliminary School Psychologist Goal 4: Pt will report 70% improvement in symptoms - progressing Minutes Tracking: Time In: 1515 Time Out: 1600 Minutes: 45 Timed Code Treatment Minutes: 43 Minutes Treatment Charges: Code Total Mins Units Time In/Out [] Evaluation [] Low [] Moderate [] High [] Re-Evaluation 16676 61913 79449 68146 [x] Ther Exercise 85028 15 1515/1528 [x] Manual Therapy 01532 1531/1544 [x] Unattend Estim 20865 1545/1600 [] Ultrasound 07853 [] Iontophoresis 90744 [] Neuro Fanny 39908 [] Aquatics 44615 [] Traction 11245 [] Work Hardening 05816 [] FCE 62562 Total Treatment time 45 mins Total Time of Time Codes 43 mins Jazmín Feldman PTA Date: 07/09/2022 documented in this encounter [employer] Phone: 07-04-2022 History of Presen t illness Narrative [facility] Outpatient Physical Therapy Daily Note Patient: Paige Panchal : 1990 CSN #: [id number] Referring Physician: Adrian Lipscomb MD Date: 07/04/2022 Diagnosis: R SHLD Treatment Diagnosis: R SHLD pain Onset Date: 01/05/22 PT Insurance Information: Yassine Watts [facility] approval from 05/13/22-07/04/22 Total # of [...] order to perform overhead ADLS - progressing Mcfp Goals Time Frame for Preliminary School Psychologist Goals : 6 weeks Preliminary School Psychologist Goal 1: Pt will be safe and independent with her HEP Preliminary School Psychologist Goal 2: Pt will increase R SHLD IR to >/=L2 and ER to >/=65 in order to reduce painful movement - progressing Mcfp Goal 3: Pt will increase R SHLD strength to >/=4+/5 in order to return to lifting at work - progressing Preliminary School Psychologist Goal 4: Pt will report 70% improvement in symptoms - progressing Minutes Tracking: Time In: 1443 Time Out: 1541 Minutes: 58 Timed Code Treatment Minutes: 56 Minutes Treatment Charges: Code Total Mins Units Time In/Out [] Evaluation [] Low [] Moderate [] High [] Re-Evaluation 62188 35382 05426 64397 [x] Ther Exercise 75324 1444 1510 [] Manual Therapy 50219 [x] Unattend Estim 40486 1522 1540 [x] Ultrasound 41842 1511 1521 [] Iontophoresis 99211 [] Neuro Fanny 07428 [] Aquatics 68201 [] Traction 90542 [] Work Hardening 24113 [] FCE 41227 Total Treatment time 58 mins Total Time of Time Codes 56 mins Amaury Quiñonez, PT Date: 07/04/2022 documented in this encounter [facility] [employer] Phone: 06-30-2022 History of Presen t illness Narrative [facility] Inpatient/Observation/Outpatien t Rehabilitation Date: 06/30/2022 Patient Name: Paige Panchal [] Inpatient Acute/Observation [] Outpatient : 1990 [] Pt no showed for scheduled appointment [] Pt refused/declined therapy at this time due to: [x] Pt cancelled due to: [] No Reason Given [x] Sick/ill [] Other: Therapist/Metal Tank Erector will attempt to see this patient, at our earliest opportunity. Asia Swift Date: 06/30/2022 documented in this encounter [facility] [employer] Phone: 06-24-2022 History of Presen t illness Narrative [facility] Outpatient Physical Therapy Daily Note Patient: Paige Panchal : 1990 CSN #: [id number] Referring Physician: Adrian Lipscomb MD Date: 06/24/2022 Treatment Diagnosis: R SHLD pain Onset Date: 01/05/22 PT Insurance Information: Yassine Watts [facility] approval from 05/13/22-07/04/22 Total # of Visits Approved: 18 Per Physician Order Total # of Visits to Date: 2 Pre-Treatment Pain: 08/30 Subjective: Pt states she is still feeling [...] >/=130 in order to perform overhead ADLS Mcfp Goals Time Frame for Mcfp Goals : 6 weeks Preliminary School Psychologist Goal 1: Pt will be safe and independent with her HEP Preliminary School Psychologist Goal 2: Pt will increase R SHLD I to >/=L2 and ER to >/=65 in order to reduce painful movement Preliminary School Psychologist Goal 3: Pt will increase R SHLD strength to >/=4+/5 in order to return to lifting at work Mcfp Goal 4: Pt will report 70% improvement in symptoms Minutes Tracking: Time In: 1445 Time Out: 1541 Minutes: 56 Timed Code Treatment Minutes: 53 Minutes Amaury Quiñonez PT Date: 06/24/2022 documented in this encounter [facility] [employer] Phone: 06-20-2022 History of Presen t illness Narrative [facility] Outpatient Physical Therapy Date: 06/20/2022 Patient: Paige Panchal : 1990 CSN #: [id number] Referring Physician: Adrian Lipscomb MD [x] Plan [...] >/=130 in order to perform overhead ADLS Mcfp Goals Time Frame for Mcfp Goals : 6 weeks Mcfp Goal 1: Pt will be safe and independent with her HEP Mcfp Goal 2: Pt will increase R SHLD I to >/=L2 and ER to >/=65 in order to reduce painful movement Mcfp Goal 3: Pt will increase R SHLD strength to >/=4+/5 in order to return to lifting at work Mcfp Goal 4: Pt will report 70% improvement [...] Blood Flow Restriction Electronically signed by: Gianna Thompson, PT, DPT Date: 06/20/2022 Date: 06/20/2022 Physician Signature [facility] Outpatient Physical Therapy Evaluation Date: 06/20/2022 Patient: Paige Panchal : 1990 CSN #: [id number] Referring Physician: Adrian Lipscomb MD Medical Diagnosis: R SHLD Treatment Diagnosis: R SHLD pain Onset Date: 01/05/22 PT Insurance Information: Yassine Watts [facility] approval from 05/13/22-07/04/22 Total # of Visits Approved: 18 Total # of Visits to Date: 1 Subjective Subjective: 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, [...] or new jar: Moderate Difficulty 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 (e.g., wash metcalf, floors): Moderate Difficulty Cece [...] >/=130 in order to perform overhead ADLS Preliminary School Psychologist Goals Time Frame for Preliminary School Psychologist Goals : 6 weeks Mcfp Goal 1: Pt will be safe and independent with her HEP Mcfp Goal 2: Pt will increase R SHLD I to >/=L2 and ER to >/=65 in order to reduce painful movement Mcfp Goal 3: Pt will increase R SHLD strength to >/=4+/5 in order to return to lifting at work Preliminary School Psychologist Goal 4: Pt will report 70% improvement in symptoms Patient Goals : to use her SHLD without pain Minutes Tracking: Time In: 1403 Time Out: 1500 Minutes: 57 Timed Code Treatment Minutes: 55 Minutes Treatment Charges: Code Total Mins Units Time In/Out [x] Evaluation [] Low [x] Moderate [] High [] Re-Evaluation 74314 68753 15993 66200 17 1 14:03-14:20 [x] Ther Exercise 89209 15 1 14:21-1436 [] Manual Therapy 53258 [x] Unattend Estim [id number] 15 [id number] [] Ultrasound [id number] 8 [id number] [] Iontophoresis 14271 [] Neuro Fanny 06119 [] Aquatics 84354 [] Traction [id number] [] Work Hardening 25844 [] FCE [id number] Total Treatment time 57 mins Total Time of Time Codes 55 mins Gianna Thompson PT, DPT 06/20/2022 documented in this encounter [facility] Phone: 01-06-2022 Hospital Discharg e instructions Poncho Benson [...] cannot be sent through Care Everywhere.Shoulder Sprain (Belarusian)RICE: General Info (Belarusian)documented in this encounter [facility] Phone: Evaluation note Diagnosis Strain of right shoulder, initial encounter- Primary documented in this encounter [facility] Phone: evaluation note* Diagnosis Right shoulder pain, unspecified chronicity documented in this encounter [facility] Phone: Summary Purpose Family History No Family History Records FoundNo Family History Records Found Advance Directives No Advanced Directives Records FoundNo Advanced Directives Records Found Reason for Referral Specialty Diagnoses / Procedures Referred By Kwan madsen Referred To Contact Radiology Diagnoses Right shoulder pain, unspecified chronicity Procedures MRI SHOULDER RIGHT WO CONTRAST Yobani Duenas [address] [place] [address] Referral ID Status Reason Start Date Expiration Date Visits Re quested Visits Authorized [id number] Closed 01/15/2022 01/15/2023 1 1 Additional Source Comments INFORMATION SOURCE (unrecogn ized section and content) DATE CREATED AUTHOR 11/12/2018 [facility] DATE CREATED AUTHOR AUTHOR'S ORGANIZ ATION 07/03/2023 [facility] Reason for Visit (unrecogniz ed section and content) Reason Comments Shoulder Injury Right shoulder pain. Patient was lifting something at work last week and felt a pop in her right shoulder. Pain continues. Specialty Diagnoses / Procedures Referred By Contac t Referred To Contact Radiology Diagnoses Right shoulder pain, unspecified chronicity Procedures MRI SHOULDER RIGHT WO CONTRAST Yobani Duenas [address] [place] [id number] Referral ID Status Reason Start Date Expiration Date Visits Re quested Visits Authorized [id number] Closed 01/15/2022 01/15/2023 1 1 Care Teams (unrecognized sec tion and content) Caseworker Protective Services Relationship Specialty Start Date End Date Sr Jesus Ferrari, DO [address] [place] [address] PCP - General Family Medicine 01/06/22 Caseworker Protective Services Relationship Specialty Start Date End Date Sr Jesus Ferrari, DO [address] [place] [address] PCP - General Family Medicine 01/06/22 Caseworker Protective Services Relationship Specialty Start Date End Date Jesus Ferrari Sr., DO [address] [place] [address] PCP - General Family Medicine 01/06/22 Caseworker Protective Services Relationship Specialty Start Date End Date Jesus Ferrari Sr., DO [address] [place] [address] PCP - General Family Medicine 01/06/22 Caseworker Protective Services Relationship Specialty Start Date End Date Jesus Ferrari Sr., DO [address] [place] [facility] [place] [address] PCP - General Family Medicine 01/06/22 Caseworker Protective Services Relationship Specialty Start Date End Date Jesus Ferrari Sr., DO [address] [place] [facility] [place] [address] PCP - General Family Medicine 01/06/22 Caseworker Protective Services Relationship Specialty Start Date End Date Jesus Ferrari Sr., DO [address] [place] [address] PCP - General Family Medicine 01/06/22 Caseworker Protective Services Relationship Specialty Start Date End Date Jesus Ferrari Sr., DO [address] [place] [address] PCP - General Family Medicine 01/06/22 Caseworker Protective Services Relationship Specialty Start Date End Date Jesus Ferrari Sr., DO [address] [place] [address] PCP - General Family Medicine 01/06/22 Caseworker Protective Services Relationship Specialty Start Date End Date Jesus Ferrari Sr., DO [address] [place] [address] PCP - General Family Medicine 01/06/22 Caseworker Protective Services Relationship Specialty Start Date End Date Jesus Ferrari Sr., DO [address] [place] [facility] [place] [address] PCP - General Family Medicine 01/06/22 Caseworker Protective Services Relationship Specialty Start Date End Date Jesus Ferrari Sr., DO [address] [facility] [place] [address] PCP - General Family Medicine 01/06/22 Caseworker Protective Services Relationship Specialty Start Date End Date Jesus Ferrari SrCharanjit, DO [address] [facility] [place] [address] PCP - General Family Medicine 01/06/22 Caseworker Protective Services Relationship Specialty Start Date End Date Jesus Ferrari SrCharanjit, DO [address] [place] [address] PCP - General Family Medicine 01/06/22 Caseworker Protective Services Relationship Specialty Start Date End Date Jesus Ferrari Sr., DO [address] [facility] [place] [address] PCP - General Family Medicine 01/06/22 Caseworker Protective Services Relationship Specialty Start Date End Date Jesus Ferrari Sr., DO [address] [facility] [place] [address] PCP - General Family Medicine 01/06/22 Caseworker Protective Services Relationship Specialty Start Date End Date Jesus Ferrari Sr., DO [address] [facility] [place] [address] PCP - General Family Medicine 01/06/22 Caseworker Protective Services Relationship Specialty Start Date End Date Jesus Ferrari Sr., DO [address] [facility] [place] [address] PCP - General Family Medicine 01/06/22 FOR [...] BE BASED ON THE PRIMARY CLINICAL RECORDS. [facility] [employer] [facility]. provides no warranty or guarantee of the accuracy or completeness of information in this document.
== END 2023-11-18 12:24 | disposition home or self-care (01) ==
LOC: MRI 12:25
PROVIDERS: Visit Provider Orthopaedic Surgery
DX: M75.01 Adhesive capsulitis of right shoulder (principal)
CPT/HCPCS: 73221